=== PATIENT | male | born 1985 | race African-American/Black ===

== ENCOUNTER 2017-04-28 12:06 | Inpatient (IN) | payer MEDICAID ==
[~2017-04-28] VITALS: Ht 198.1 cm; Wt 97.5 kg
[2017-04-28 12:30] VITALS: BP 149/71
[2017-04-28] MEDS ORDERED: HYDROmorphone 1mg/ml Carpuject IVP ONE ×2 (12:30→16:15)
[2017-04-28 13:09] LABS: APPEARANCE,URINE CLEAR; KETONES,URINE NEGATIVE (NEGATIVE); LEUKOCYTE ESTERASE ,URINE NEGATIVE (NEGATIVE); MEAN CORPUSCULAR HEMOGLOBIN 30.2 PG (27.0-31.0); MEAN CORPUSCULAR HGB CONC 31.8 G/DL (32.0-36.0); MEAN CORPUSCULAR VOLUME 95 FL (80-99); MEAN PLATELET VOLUME 5.3 FL (6.5-10.1); MONOCYTES % (AUTO) 7.1 % (1.0-10.0); NEUTROPHILS % (AUTO) 61.9 % (45.0-75.0); NITRITE,URINE NEGATIVE (NEGATIVE); PH,URINE 6.5 (4.5-8.0); PLATELET COUNT 223 K/UL (150-450); PROTEIN,URINE NEGATIVE (NEGATIVE); RED BLOOD COUNT 4.77 M/UL (4.70-6.10); RED CELL DISTRIBUTION WIDTH 13.9 % (11.6-14.8); UROBILINOGEN,URINE NORMAL MG/DL (0.0-1.0); WHITE BLOOD COUNT 4.8 K/UL (4.8-10.8)
[2017-04-28 13:30] LABS: BACTERIA,URINE OCCASIONAL /HPF; SQUAMOUS EPITHELIAL CELL,UR OCCASIONAL /LPF (NONE/OCC); WBC,URINE 0-2 /HPF (0 - 0)
[2017-04-28 13:31] LABS: ALANINE AMINOTRANSFERASE 29 U/L (12-78); ALBUMIN/GLOBULIN RATIO 1.4 (1.0-2.7); ANION GAP 13 mmol/L (5-15); ASPARTATE AMINO TRANSFERASE 14 U/L (15-37); CALCIUM 9.9 MG/DL (8.5-10.1); CARBON DIOXIDE 26 MMOL/L (21-32); CHLORIDE 103 MMOL/L (98-107); CREATININE 0.6 MG/DL (0.55-1.30); GLOMERULAR FILTRATION RATE > 60 mL/min (>60); POTASSIUM 3.6 MMOL/L (3.5-5.1); SODIUM 142 MMOL/L (136-145); TOTAL PROTEIN 8.1 G/DL (6.4-8.2)
[2017-04-28 13:34] LABS: CKMB < 0.5 NG/ML (0.0-3.6); LIPASE 623 U/L (73-393)
[2017-04-28] MEDS ORDERED: DiphenhydrAMINE 50mg/ml Inj IVP ONE (13:45)
[2017-04-28] MEDS ORDERED: Solu-MEDROL 125mg Inj IVP ONE (13:45)
[2017-04-28] MEDS ORDERED: D5 1/2NS 1000ml IV ONE (14:41)
[2017-04-28 14:44] VITALS: BP 131/71
--- NOTE | 2017-04-28 16:08 | Emergency Room Report ---
History of Present Illness General Chief Complaint: Chest Pain Source: Patient, Medical Record Present Illness HPI 31-year-old male presents ED complaining of chest pain times one day. Also states he vomited blood. States has history of heart attack with multiple stents. Has pacemaker. Has history of A. fib and is on eliquis. Chest pain is 10 out of 10, midsternal, nonradiating. Patient states he is visiting from [place]. Denies smoking or drug use. No other aggravating relieving factors. Denies any other associated symptoms Allergies: Coded Allergies: AVOCADO (Verified Allergy, Unknown, 04/28/17) BANANA (Verified Allergy, Unknown, 04/28/17) KETOROLAC (Verified Allergy, Unknown, 04/28/17) Kiwi (Verified Allergy, Unknown, 04/28/17) LATEX, NATURAL RUBBER (Verified Allergy, Unknown, 04/28/17) MORPHINE (Verified Allergy, Unknown, 04/28/17) ONION (Verified Allergy, Unknown, 04/28/17) PROMETHAZINE (Verified Allergy, Unknown, 04/28/17) PROPOFOL (Verified Allergy, Unknown, 04/28/17) Uncoded Allergies: IODINATED CONTRAST (Allergy, Unknown, 04/28/17) Patient History Past Medical History: CHF, AFib, CVA/TIA Past Surgical History: none, pacemaker Pertinent Family History: none Social History: Denies: smoking, alcohol use, drug use Immunizations: UTD Reviewed Nursing Documentation: PMH: Agreed, PSxH: Agreed Nursing Documentation-PMH Hx Cardiac Problems: Yes - s/p patent foramen ovale closure, TIA, CHF, Supraventricular Tachycardia Hx Hypertension: Yes - Pulmonary Hypertension Hx Pacemaker: Yes - Biotronik pacemaker Hx Gastrointestinal Problems: Yes - Iron deficiency anemia Hx Neurological Problems: No - marfan syndrome Hx Cerebrovascular Accident: Yes - 2007 Review of Systems All Other Systems: negative except mentioned in HPI Physical Exam Vital Signs Date Time Temp Pulse Resp B/P (MAP) Pulse Ox O2 Delivery O2 Flow Rate FiO2 04/28/17 12:11 98.4 80 18 149/71 100 Room Air Sp02 EP Interpretation: reviewed, normal General Appearance: no apparent distress, alert, GCS 15, non-toxic Head: normocephalic, atraumatic Eyes: bilateral eye normal inspection, bilateral eye PERRL ENT: hearing grossly normal, normal pharynx, no angioedema, normal voice Neck: full range of motion, supple/symm/no masses Respiratory: chest non-tender, lungs clear, normal breath sounds, speaking full sentences Cardiovascular #1: regular rate, rhythm, no edema Cardiovascular #2: 2+ carotid (R), 2+ carotid (L), 2+ radial (R), 2+ radial (L) , 2+ dorsalis pedis (R), 2+ dorsalis pedis (L) Gastrointestinal: normal bowel sounds, non tender, soft, non-distended, no guarding, no rebound Rectal: deferred Genitourinary: normal inspection, no CVA tenderness Musculoskeletal: back normal, gait/station normal, normal range of motion, non- tender Neurologic: alert, oriented x3, responsive, motor strength/tone normal, sensory intact, speech normal Psychiatric: judgement/insight normal, memory normal, mood/affect normal, no suicidal/homicidal ideation Reflexes: 3+ bicep (R), 3+ bicep (L), 3+ tricep (R), 3+ tricep (L), 3+ knee (R) , 3+ knee (L) Skin: normal color, no rash, warm/dry, well hydrated Lymphatic: no adenopathy Medical Decision Making Diagnostic Impression: Primary Impression: ACS (acute coronary syndrome) Additional Impression: UGIB (upper gastrointestinal bleed) ER Course Hospital Course 31-year-old male presents to ED with chest pain. History of [place] and pacemaker. History of afib. vomiting blood. Differential diagnoses include: W[place]/unstable angina, contusion, muscle strain, PTX, rib fracture Clinical course patient placed on stretcher. on environmental monitoring specialist. After initial history and physical I ordered labs, EKG, chest x-ray, pain meds, pepcid labs reviewed- no leukocytosis, hb/hct stable, electrolytes ok, trop negative EKG - NSR, twave inversions in lateral leads interpreted by me Chest x-ray- pacemaker noted Patient is difficult IV access. I placed a peripheral EJ line Potential concern for PE however patient does have stable vitals. I ordered CTA chest but patient does have contrast allergy. Hospital protocol requires 24 hours of treatment with steroids. Ordered Solu-Medrol and Benadryl here. Aspirin given Case discussed with Dr. Francois and he agreed to accept the patient to his service for further care and support I. I feel this is a highly complex case requiring extensive working including EKG/Rhythm strip, Xray/CT/US, Blood/urine lab work, repeat exams while in ED, and administration of strong opiates/narcotics for pain control, admission to hospital or close patient follow up. Diagnosis - ACS, UGIB admitted to telemetry in serious condition Labs Test 04/28/17 12:55 White Blood Count 4.8 K/UL (4.8-10.8) Red Blood Count 4.77 M/UL (4.70-6.10) Hemoglobin 14.4 G/DL (14.2-18.0) Hematocrit 45.3 % (42.0-52.0) Mean Corpuscular Volume 95 FL (80-99) Mean Corpuscular Hemoglobin 30.2 PG (27.0-31.0) Mean Corpuscular Hemoglobin Concent 31.8 G/DL (32.0-36.0) Red Cell Distribution Width 13.9 % (11.6-14.8) Platelet Count 223 K/UL (150-450) Mean Platelet Volume 5.3 FL (6.5-10.1) Neutrophils (%) (Auto) 61.9 % (45.0-75.0) Lymphocytes (%) (Auto) 29.0 % (20.0-45.0) Monocytes (%) (Auto) 7.1 % (1.0-10.0) Eosinophils (%) (Auto) 1.0 % (0.0-3.0) Basophils (%) (Auto) 1.0 % (0.0-2.0) Prothrombin Time 10.0 SEC (9.30-11.50) Prothromb Time International Ratio 1.0 (0.9-1.1) Activated Partial Thromboplast Time 19 SEC (23-33) Urine Color Pale yellow Urine Appearance Clear Urine pH 6.5 (4.5-8.0) Urine Specific [place] 1.015 (1.005-1.035) Urine Protein Negative (NEGATIVE) Urine Glucose (UA) Negative (NEGATIVE) Urine Ketones Negative (NEGATIVE) Urine Occult Blood 2+ (NEGATIVE) Urine Nitrite Negative (NEGATIVE) Urine Bilirubin Negative (NEGATIVE) Urine Urobilinogen Normal MG/DL (0.0-1.0) Urine Leukocyte Esterase Negative (NEGATIVE) Urine RBC 2-4 /HPF (0 - 0) Urine WBC 0-2 /HPF (0 - 0) Urine Squamous Epithelial Cells Occasional /LPF Urine Bacteria Occasional /HPF (NONE) Sodium Level 142 MMOL/L (136-145) Potassium Level 3.6 MMOL/L (3.5-5.1) Chloride Level 103 MMOL/L (98-107) Carbon Dioxide Level 26 MMOL/L (21-32) Anion Gap 13 mmol/L (5-15) Blood Urea Nitrogen 8 mg/dL (7-18) Creatinine 0.6 MG/DL (0.55-1.30) Estimat Glomerular Filtration Rate > 60 mL/min (>60) Glucose Level 85 MG/DL (74-106) Calcium Level 9.9 MG/DL (8.5-10.1) Total Bilirubin 0.5 MG/DL (0.2-1.0) Aspartate Amino Transf (AST/SGOT) 14 U/L (15-37) Alanine Aminotransferase (ALT/SGPT) 29 U/L (12-78) Alkaline Phosphatase 70 U/L (46-116) Total Creatine Kinase 75 U/L (26-308) Creatine Kinase MB < 0.5 NG/ML (0.0-3.6) Creatine Kinase MB Relative Index 0.6 Troponin I 0.000 ng/mL (0.000-0.056) Total Protein 8.1 G/DL (6.4-8.2) Albumin 4.7 G/DL (3.4-5.0) Globulin 3.4 g/dL Albumin/Globulin Ratio 1.4 (1.0-2.7) Lipase 623 U/L (73-393) EKG Diagnostic Results Rate: normal Rhythm: NSR ST Segments: other - twave inversions in lateral leads ASA given to the pt in ED: Yes Rhythm Strip Diag. Results EP Interpretation: yes Rhythm: NSR, no PVC's, no ectopy Chest X-Ray Diagnostic Results Chest X-Ray Diagnostic Results : Chest X-Ray Ordered: Yes # of Views/Limited/Complete: 1 View Indication: Chest Pain EP Interpretation: Yes Interpretation: no consolidation, no effusion, no pneumothorax, no acute cardiopulmonary disease, other - pacemaker Impression: No acute disease Electronically Signed by: Electronically signed by Arley Fernandez MD Last Vital Signs Date Time Temp Pulse Resp B/P (MAP) Pulse Ox O2 Delivery O2 Flow Rate FiO2 04/28/17 14:44 98.4 72 13 131/71 100 Room Air Status: improved Disposition: ADMITTED INPATIENT Condition: Serious Referrals: NON PHYSICIAN (PCP) ARLEY FERNANDEZ M.D. Apr 28, 2017 16:08
[2017-04-28 16:31] VITALS: BP 132/69
--- NOTE | 2017-04-28 16:40 | Diagnostic Imaging Report ---
Indication: Dyspnea Comparison: None A single view chest radiograph was obtained. Findings: Pacemaker noted. No definite infiltrate or pulmonary vascular congestion identified. The heart is enlarged. The aorta is mildly enlarged consistent with atherosclerotic vascular disease. The bones are osteopenic. Impression: No acute disease
[2017-04-28] MEDS ORDERED: Nitroglycerin Subl 0.4mg tab SL PRN (16:45)
[2017-04-28] MEDS ORDERED: Mylanta II UD 30ml ORAL PRN (16:45)
[2017-04-28] MEDS ORDERED: Miralax 17gm pkt ORAL PRN (16:45)
[2017-04-28] MEDS ORDERED: D5 1/2NS 1,000 ML IV SCH (17:38)
[2017-04-28] MEDS ORDERED: ELIQUIS5 MG PO (18:51)
[2017-04-28] MEDS ORDERED: LIPITOR10 MG ORAL (18:51)
[2017-04-28] MEDS ORDERED: ZOLPIDEM TARTRA10 MG ORAL (18:51)
[2017-04-28] MEDS ORDERED: SPIRONOLACTONE1 EACH ORAL (18:51)
[2017-04-28] MEDS ORDERED: GABAPENTIN300 MG ORAL (18:51)
[2017-04-28] MEDS ORDERED: FERROUS SULFAT325 MG ORAL (18:51)
[2017-04-28] MEDS ORDERED: TRAMADOL HCL50 MG ORAL (18:51)
[2017-04-28] MEDS ORDERED: PANTOPRAZOLE SO40 MG ORAL (18:51)
[2017-04-28] MEDS ORDERED: ISOSORBIDE MONO60 M1 PO (18:51)
[2017-04-28] MEDS ORDERED: CARAFATE1 G1 ORAL (18:51)
[2017-04-28] MEDS ORDERED: DIGOXIN125 MCG ORAL (18:51)
[2017-04-28] MEDS ORDERED: POTASSIUM CHLO20 ME1 ORAL (18:51)
[2017-04-28] MEDS ORDERED: SERTRALINE HCL50 MG ORAL (18:51)
[2017-04-28] MEDS ORDERED: DILAUDID2 MG ORAL (18:51)
[2017-04-28] MEDS ORDERED: CARVEDILOL6.25 MG ORAL (18:51)
[2017-04-28] MEDS ORDERED: SOTALOL PO (18:51)
[2017-04-28] MEDS ORDERED: Pantoprazole Inj IV SCH (19:00)
--- NOTE | 2017-04-28 20:10 | History and Physical ---
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 Pt states around 8AM he had episode of emesis w/ blood breaks and then 9AM he had coffee- ground emesis. He also c/o chest pain and abd pain which started today w/ intermittent episodes. Chest pain is 10/10 substernal sharp/tearing sensation radiation to upper back. C/o nausea, some SOB, but no f/c, d/c, dysuria. Denies melena, BRBPR, hematochezia. Pt lives in [place] and normally goes to [place] for medical care, but is visit [place] at this time. In ED, hgb 14. Trop neg. CT angio chest ordered but pt w/ iodine allergy so received solumedrol and benadryl w/ plan for CT in 24h. Allergies: Coded Allergies: AVOCADO (Verified Allergy, Unknown, 04/28/17) BANANA (Verified Allergy, Unknown, 04/28/17) KETOROLAC (Verified Allergy, Unknown, 04/28/17) Kiwi (Verified Allergy, Unknown, 04/28/17) LATEX, NATURAL RUBBER (Verified Allergy, Unknown, 04/28/17) MORPHINE (Verified Allergy, Unknown, 04/28/17) ONION (Verified Allergy, Unknown, 04/28/17) PROMETHAZINE (Verified Allergy, Unknown, 04/28/17) PROPOFOL (Verified Allergy, Unknown, 04/28/17) Uncoded Allergies: IODINATED CONTRAST (Allergy, Unknown, 04/28/17) Medication History Scheduled Apixaban (Eliquis), 5 MG PO BID, (Reported) Atorvastatin Calcium* (Lipitor*), 10 MG ORAL DAILY, (Reported) Carvedilol* (Carvedilol*), 6.25 MG ORAL BID, (Reported) Digoxin* (Digoxin*), 125 MCG ORAL DAILY, (Reported) Ferrous Sulfate* (Ferrous Sulfate*), 325 MG ORAL THREE TIMES A DAY, (Reported) Gabapentin* (Gabapentin*), 300 MG ORAL THREE TIMES A DAY, (Reported) Hydromorphone HCl (Dilaudid), 2 MG ORAL Q4H, (Reported) Isosorbide Mononitrate (Isosorbide Mononitrate Er), 60 MG PO DAILY, (Reported) Pantoprazole* (Pantoprazole*), 40 MG ORAL DAILY, (Reported) Potassium Chloride* (K-Dur*), 40 MEQ ORAL TWICE A DAY, (Reported) Sertraline Hcl* (Zoloft*), 50 MG ORAL DAILY, (Reported) Sotalol HCl (Sotalol), 80 MG PO BID, (Reported) Spironolact/Hydrochlorothiazid (Spironolactone-Hctz 25-25 Tab), 1 TAB ORAL DAILY , (Reported) Sucralfate* (Carafate*), 1 GM ORAL BEDTIME, (Reported) Scheduled PRN Tramadol Hcl* (Ultram*), 50 MG ORAL Q6H PRN for For Pain, (Reported) Zolpidem Tartrate* (Zolpidem Tartrate*), 10 MG ORAL BEDTIME PRN for Insomnia, ( Reported) Patient History Healthcare decision maker Resuscitation status Advanced Directive on File Yes Past Medical/Surgical History Past Medical/Surgical History: (1) H/o MD in 2011 (2) VF/VT s/p ICD (3) ASD s/p closure (4) Spontaneous pneumothorax (5) Paroxysmal A-fib (6) H/o CVA w/ residual L sided weakness (7) 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 (8) Marfan syndrome Family History Family History: Marfan syndrome Social History Social History: (1) No significant social history Review of Systems Constitutional: Reports: weakness Eye: Reports: no symptoms ENT: Reports: no symptoms Respiratory: Reports: shortness of breath Cardiovascular: Reports: chest pain Gastrointestinal: Reports: abdominal pain, nausea, vomiting, hematemesis Genitourinary: Reports: no symptoms Musculoskeletal: Reports: no symptoms Skin: Reports: no symptoms Psychiatric: Reports: no symptoms Neurological: Reports: no symptoms Endocrine: Reports: no symptoms Hematologic/Lymphatic: Reports: no symptoms All Other Systems: negative except mentioned in HPI Physical Exam Physical Exam Narrative General: alert, cooperative, no distress, appears stated age Head: normocephalic, without obvious abnormality, atraumatic Eyes: conjunctivae/corneas clear. PERRL, EOM's intact Throat: lips, mucosa, and tongue normal. MMM Neck: supple, symmetrical, trachea midline, and no JVD Lungs: clear to auscultation bilaterally Heart: regular rate and rhythm, S1, S2 normal, no murmur, click, rub or gallop Abdomen: soft, non-tender, non-distended, bowel sounds normal; no masses or organomegaly Extremities: extremities normal, atraumatic, no cyanosis or edema Pulses: 2+ and symmetric Skin: skin color, texture, turgor normal; no rashes or lesions Neurologic: grossly normal, no focal deficits Last 24 Hour Vital Signs Date Time Temp Pulse Resp B/P (MAP) Pulse Ox O2 Delivery O2 Flow Rate FiO2 04/28/17 19:00 98.4 71 17 117/64 100 Room Air 04/28/17 16:31 98.4 75 16 132/69 100 Room Air 04/28/17 14:44 98.4 72 13 131/71 100 Room Air 04/28/17 12:30 67 13 Room Air 04/28/17 12:30 98.4 67 13 149/71 100 Room Air 04/28/17 12:11 98.4 80 18 149/71 100 Room Air Intake and Output 04/28/17 04/29/17 19:00 07:00 Intake Total 1000 ml Output Total 600 ml Balance 400 ml Intake IV Total 1000 ml Output Urine Total 600 ml # Voids 2 Laboratory Tests Test 04/28/17 12:55 White Blood Count 4.8 K/UL (4.8-10.8) Red Blood Count 4.77 M/UL (4.70-6.10) Hemoglobin 14.4 G/DL (14.2-18.0) Hematocrit 45.3 % (42.0-52.0) Mean Corpuscular Volume 95 FL (80-99) Mean Corpuscular Hemoglobin 30.2 PG (27.0-31.0) Mean Corpuscular Hemoglobin Concent 31.8 G/DL (32.0-36.0) L Red Cell Distribution Width 13.9 % (11.6-14.8) Platelet Count 223 K/UL (150-450) Mean Platelet Volume 5.3 FL (6.5-10.1) L Neutrophils (%) (Auto) 61.9 % (45.0-75.0) Lymphocytes (%) (Auto) 29.0 % (20.0-45.0) Monocytes (%) (Auto) 7.1 % (1.0-10.0) Eosinophils (%) (Auto) 1.0 % (0.0-3.0) Basophils (%) (Auto) 1.0 % (0.0-2.0) Prothrombin Time 10.0 SEC (9.30-11.50) Prothromb Time International Ratio 1.0 (0.9-1.1) Activated Partial Thromboplast Time 19 SEC (23-33) L Urine Color Pale yellow Urine Appearance Clear Urine pH 6.5 (4.5-8.0) Urine Specific [place] 1.015 (1.005-1.035) Urine Protein Negative (NEGATIVE) Urine Glucose (UA) Negative (NEGATIVE) Urine Ketones Negative (NEGATIVE) Urine Occult Blood 2+ (NEGATIVE) H Urine Nitrite Negative (NEGATIVE) Urine Bilirubin Negative (NEGATIVE) Urine Urobilinogen Normal MG/DL (0.0-1.0) Urine Leukocyte Esterase Negative (NEGATIVE) Urine RBC 2-4 /HPF (0 - 0) H Urine WBC 0-2 /HPF (0 - 0) Urine Squamous Epithelial Cells Occasional /LPF Urine Bacteria Occasional /HPF (NONE) Sodium Level 142 MMOL/L (136-145) Potassium Level 3.6 MMOL/L (3.5-5.1) Chloride Level 103 MMOL/L (98-107) Carbon Dioxide Level 26 MMOL/L (21-32) Anion Gap 13 mmol/L (5-15) Blood Urea Nitrogen 8 mg/dL (7-18) Creatinine 0.6 MG/DL (0.55-1.30) Estimat Glomerular Filtration Rate > 60 mL/min (>60) Glucose Level 85 MG/DL (74-106) Calcium Level 9.9 MG/DL (8.5-10.1) Total Bilirubin 0.5 MG/DL (0.2-1.0) Aspartate Amino Transf (AST/SGOT) 14 U/L (15-37) L Alanine Aminotransferase (ALT/SGPT) 29 U/L (12-78) Alkaline Phosphatase 70 U/L (46-116) Total Creatine Kinase 75 U/L (26-308) Creatine Kinase MB < 0.5 NG/ML (0.0-3.6) Creatine Kinase MB Relative Index 0.6 Troponin I 0.000 ng/mL (0.000-0.056) Total Protein 8.1 G/DL (6.4-8.2) Albumin 4.7 G/DL (3.4-5.0) Globulin 3.4 g/dL Albumin/Globulin Ratio 1.4 (1.0-2.7) Lipase 623 U/L (73-393) H Height (Feet): 6 Height (Inches): 3.00 Weight (Pounds): 215 Medications Current Medications Medications (Trade) Dose Ordered Sig/Nichelle Route PRN Reason Start Time Stop Time Status Last Admin Dose Admin Acetaminophen (Tylenol) 650 mg Q4H PRN ORAL Mild Pain (Pain Scale 1-3) 04/28/17 16:45 05/28/17 16:44 Al Hydroxide/Mg Hydroxide (Mylanta II) 30 ml Q6H PRN ORAL dyspepsia 04/28/17 16:45 05/28/17 16:44 Dextrose (Dextrose 50%) STAT PRN IV Hypoglycemia 04/28/17 16:45 05/28/17 16:44 Dextrose/Sodium Chloride 1,000 ml @ 100 mls/hr Q10H IV 04/28/17 17:00 05/28/17 16:59 Diphenhydramine HCl (Benadryl) 25 mg Q6H PRN ORAL Itching/Pruritis 04/28/17 16:45 05/28/17 16:44 Docusate Sodium (Colace) 100 mg EVERY 12 HOURS ORAL 04/28/17 21:00 05/28/17 20:59 Nitroglycerin (Ntg) 0.4 mg Q5M PRN SL Prn Chest Pain 04/28/17 16:45 05/28/17 16:44 Ondansetron HCl (Zofran) 4 mg Q6H PRN IVP Nausea & Vomiting 04/28/17 16:45 05/28/17 16:44 Pantoprazole (Protonix) 40 mg DAILY IV 04/28/17 19:00 05/28/17 18:59 Polyethylene Glycol (Miralax) 17 gm DAILYPRN PRN ORAL Constipation 04/28/17 16:45 05/28/17 16:44 Assessment/Plan Problem List: (1) Acute upper GI bleed ICD Codes: K92.2 - Gastrointestinal hemorrhage, unspecified SNOMED: 87010125 (2) Atypical chest pain ICD Codes: R07.89 - Other chest pain SNOMED: 083430567 (3) Elevated lipase ICD Codes: R74.8 - Abnormal levels of other serum enzymes SNOMED: 234728729 (4) Marfan syndrome ICD Codes: Q87.40 - Marfan's syndrome, unspecified SNOMED: 90559883 (5) H/o MD in 2011 (6) H/o CVA w/ residual L sided weakness (7) VF/VT s/p ICD (8) ASD s/p closure (9) Spontaneous pneumothorax ICD Codes: J93.83 - Other pneumothorax SNOMED: 59479035 (10) 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 Apr 28, 2017 20:10
[2017-04-28 21:12] VITALS: BP 140/71
[2017-04-28] MEDS ORDERED: traMADol 50mg tab ORAL PRN (21:15)
[2017-04-28] MEDS ORDERED: Zolpidem 5mg tab ORAL PRN (21:30)
[2017-04-28] MEDS: HYDROmorphone 1mg/ml Carpuject IVP PRN (21:57)
[2017-04-28] MEDS: Carvedilol 6.25mg Tab ORAL SCH (22:21)
[2017-04-28] MEDS: Docusate 100mg cap ORAL SCH (22:22)
[2017-04-28] MEDS: Sucralfate 1gm tab ORAL SCH (22:22)
[2017-04-28] MEDS: D5 1/2NS 1,000 ML IV SCH (22:23)
[2017-04-28 23:58] LABS: MEAN CORPUSCULAR HEMOGLOBIN 30.5 PG (27.0-31.0); MEAN CORPUSCULAR HGB CONC 33.2 G/DL (32.0-36.0); MEAN CORPUSCULAR VOLUME 92 FL (80-99); MEAN PLATELET VOLUME 5.5 FL (6.5-10.1); PLATELET COUNT 192 K/UL (150-450); RED BLOOD COUNT 4.34 M/UL (4.70-6.10); RED CELL DISTRIBUTION WIDTH 13.8 % (11.6-14.8); WHITE BLOOD COUNT 4.5 K/UL (4.8-10.8)
[2017-04-29 00:28] VITALS: BP 166/77
[2017-04-29] MEDS: HYDROmorphone 1mg/ml Carpuject IVP PRN ×6 (02:11→22:12)
[2017-04-29] MEDS ORDERED: DiphenhydrAMINE 50mg/ml Inj IVP ONE ×2 (03:15→09:30)
[2017-04-29] MEDS: D5 1/2NS 1,000 ML IV SCH ×2 (04:08→13:00)
[2017-04-29 04:38] VITALS: BP 129/82
[2017-04-29 08:36] LABS: BASOPHILS % (AUTO) 0.3 % (0.0-2.0); LYMPHOCYTES % (AUTO) 12.4 % (20.0-45.0); MEAN CORPUSCULAR HEMOGLOBIN 29.5 PG (27.0-31.0); MEAN CORPUSCULAR HGB CONC 30.4 G/DL (32.0-36.0); MEAN CORPUSCULAR VOLUME 97 FL (80-99); MEAN PLATELET VOLUME 5.2 FL (6.5-10.1); NEUTROPHILS % (AUTO) 81.3 % (45.0-75.0); PLATELET COUNT 219 K/UL (150-450); RED BLOOD COUNT 4.06 M/UL (4.70-6.10); RED CELL DISTRIBUTION WIDTH 13.5 % (11.6-14.8); WHITE BLOOD COUNT 6.7 K/UL (4.8-10.8)
[2017-04-29 08:54] LABS: ANION GAP 5 mmol/L (5-15); CALCIUM 8.9 MG/DL (8.5-10.1); CARBON DIOXIDE 29 MMOL/L (21-32); CHLORIDE 106 MMOL/L (98-107); CHOLESTEROL 160 MG/DL (< 200); CHOLESTEROL/HDL RATIO 2.1 (3.3-4.4); CREATININE 0.7 MG/DL (0.55-1.30); GLOMERULAR FILTRATION RATE > 60 mL/min (>60); MAGNESIUM 1.7 MG/DL (1.8-2.4); POTASSIUM 3.8 MMOL/L (3.5-5.1); SODIUM 140 MMOL/L (136-145)
[2017-04-29 08:56] VITALS: BP 118/68
[2017-04-29] MEDS ORDERED: Solu-MEDROL 125mg Inj IVP ONE (09:30)
[2017-04-29] MEDS: Sertraline 50mg tab ORAL SCH (09:39)
[2017-04-29] MEDS: Docusate 100mg cap ORAL SCH ×2 (09:42→20:46)
[2017-04-29] MEDS: Carvedilol 6.25mg Tab ORAL SCH ×2 (09:43→18:00)
[2017-04-29] MEDS: Digoxin 0.125mg tab ORAL SCH (09:45)
[2017-04-29 10:02] LABS: HEMOGLOBIN A1C 5.1 % (4.3-6.0)
--- NOTE | 2017-04-29 11:39 | GI Initial Consult Note ---
History of Present Illness General Date patient seen: Apr 29, 2017 Time patient seen: 11:30 Reason for Hospitalization: Chest Pain Referring physician: REJI TRIPLETT Reason for Consultation: UGIB Present Illness HPI 31-year-old male presents ED complaining of chest pain times one day. Also states he vomited blood. States has history of heart attack with multiple stents. Has pacemaker. Has history of A. fib and is on eliquis. Chest pain is 10 out of 10, midsternal, nonradiating. Patient states he is visiting from [place]. Denies smoking or drug use. No other aggravating relieving factors. Denies any other associated symptoms. GI consulted for UGIB. HPI as noted above. Pt seen on floor, awake A&Ox4 NAD with no active s/sx of N/V/D. Denies any pain at this time. Denies IVDA/etoh use. The patient presents today with mild anemia and elevated lipase. 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 Currently on PPI + Carafate. Patient also has a history of varices, which was not found on his recent EGD. Patient stated last PO eliquis was taken 2 days ago. Home Meds Reported Medications Zolpidem Tartrate* (ZOLPIDEM TARTRATE*) 10 Mg Tablet, 10 MG ORAL BEDTIME Y for Insomnia, TAB 0 Refills 04/28/17 Tramadol Hcl* (ULTRAM*) 50 Mg Tablet, 50 MG ORAL Q6H Y for For Pain, #30 TAB 0 Refills 04/28/17 Sucralfate* (CARAFATE*) 1 Gm Tablet, 1 GM ORAL BEDTIME, TAB 04/28/17 Spironolact/Hydrochlorothiazid (SPIRONOLACTONE-HCTZ 25-25 TAB) 1 Each Tablet, 1 TAB ORAL DAILY, TAB 04/28/17 Sotalol HCl (Sotalol) 80 Mg Tablet, 80 MG PO BID, TAB 04/28/17 Sertraline Hcl* (ZOLOFT*) 50 Mg Tablet, 50 MG ORAL DAILY, TAB 04/28/17 Potassium Chloride* (K-DUR*) 20 Meq Tab.er.prt, 40 MEQ ORAL TWICE A DAY, #14 TAB 0 Refills 04/28/17 Pantoprazole* (PANTOPRAZOLE*) 40 Mg Tablet.dr, 40 MG ORAL DAILY, TAB 04/28/17 Isosorbide Mononitrate (ISOSORBIDE MONONITRATE ER) 60 Mg Tab.er.24h, 60 MG PO DAILY, TAB 04/28/17 Hydromorphone HCl (Dilaudid) 2 Mg Tablet, 2 MG ORAL Q4H, #20 TAB 0 Refills 04/28/17 Gabapentin* (GABAPENTIN*) 300 Mg Capsule, 300 MG ORAL THREE TIMES A DAY, CAP 0 Refills 04/28/17 Ferrous Sulfate* (FERROUS SULFATE*) 325 Mg Tablet, 325 MG ORAL THREE TIMES A DAY , #90 TAB 0 Refills 04/28/17 Digoxin* (DIGOXIN*) 125 Mcg Tablet, 125 MCG ORAL DAILY, TAB 04/28/17 Carvedilol* (CARVEDILOL*) 6.25 Mg Tablet, 6.25 MG ORAL BID, TAB 04/28/17 Atorvastatin Calcium* (LIPITOR*) 10 Mg Tablet, 10 MG ORAL DAILY, #30 TAB 0 Refills 04/28/17 Apixaban (ELIQUIS) 5 Mg Tablet, 5 MG PO BID, TAB 04/28/17 Med list reviewed/reconciled: Yes Allergies: Coded Allergies: AVOCADO (Verified Allergy, Unknown, 04/28/17) BANANA (Verified Allergy, Unknown, 04/28/17) KETOROLAC (Verified Allergy, Unknown, 04/28/17) Kiwi (Verified Allergy, Unknown, 04/28/17) LATEX, NATURAL RUBBER (Verified Allergy, Unknown, 04/28/17) MORPHINE (Verified Allergy, Unknown, 04/28/17) ONION (Verified Allergy, Unknown, 04/28/17) PROMETHAZINE (Verified Allergy, Unknown, 04/28/17) PROPOFOL (Verified Allergy, Unknown, 04/28/17) Uncoded Allergies: IODINATED CONTRAST (Allergy, Unknown, 04/28/17) Patient History History Provided By: Patient, Medical Record PMH Narrative Past Medical History: CHF, AFib, CVA/TIA Past Surgical History: none, pacemaker Pertinent Family History: none Social History: Denies: smoking, alcohol use, drug use Immunizations: UTD Reviewed Nursing Documentation: PMH: Agreed, PSxH: Agreed Nursing Documentation-PMH Hx Cardiac Problems: Yes - s/p patent foramen ovale closure, TIA, CHF, Supraventricular Tachycardia Hx Hypertension: Yes - Pulmonary Hypertension Hx Pacemaker: Yes - Biotronik pacemaker Hx Gastrointestinal Problems: Yes - Iron deficiency anemia Hx Neurological Problems: No - marfan syndrome Hx Cerebrovascular Accident: Yes - 2007 Review of Systems All Other Systems: negative except mentioned in HPI Physical Exam Vital Signs Date Time Temp Pulse Resp B/P (MAP) Pulse Ox O2 Delivery O2 Flow Rate FiO2 04/28/17 12:11 98.4 80 18 149/71 100 Room Air Sp02 EP Interpretation: reviewed, normal Labs Laboratory Tests Test 04/28/17 12:55 04/28/17 23:40 04/29/17 07:45 White Blood Count 4.8 K/UL (4.8-10.8) 4.5 K/UL (4.8-10.8) L 6.7 K/UL (4.8-10.8) Red Blood Count 4.77 M/UL (4.70-6.10) 4.34 M/UL (4.70-6.10) L 4.06 M/UL (4.70-6.10) L Hemoglobin 14.4 G/DL (14.2-18.0) 13.2 G/DL (14.2-18.0) L 12.0 G/DL (14.2-18.0) L Hematocrit 45.3 % (42.0-52.0) 39.9 % (42.0-52.0) L 39.3 % (42.0-52.0) L Mean Corpuscular Volume 95 FL (80-99) 92 FL (80-99) 97 FL (80-99) Mean Corpuscular Hemoglobin 30.2 PG (27.0-31.0) 30.5 PG (27.0-31.0) 29.5 PG (27.0-31.0) Mean Corpuscular Hemoglobin Concent 31.8 G/DL (32.0-36.0) L 33.2 G/DL (32.0-36.0) 30.4 G/DL (32.0-36.0) L Red Cell Distribution Width 13.9 % (11.6-14.8) 13.8 % (11.6-14.8) 13.5 % (11.6-14.8) Platelet Count 223 K/UL (150-450) 192 K/UL (150-450) 219 K/UL (150-450) Mean Platelet Volume 5.3 FL (6.5-10.1) L 5.5 FL (6.5-10.1) L 5.2 FL (6.5-10.1) L Neutrophils (%) (Auto) 61.9 % (45.0-75.0) % (45.0-75.0) 81.3 % (45.0-75.0) H Lymphocytes (%) (Auto) 29.0 % (20.0-45.0) % (20.0-45.0) 12.4 % (20.0-45.0) L Monocytes (%) (Auto) 7.1 % (1.0-10.0) % (1.0-10.0) 6.0 % (1.0-10.0) Eosinophils (%) (Auto) 1.0 % (0.0-3.0) % (0.0-3.0) 0.0 % (0.0-3.0) Basophils (%) (Auto) 1.0 % (0.0-2.0) % (0.0-2.0) 0.3 % (0.0-2.0) Prothrombin Time 10.0 SEC (9.30-11.50) Prothromb Time International Ratio 1.0 (0.9-1.1) Activated Partial Thromboplast Time 19 SEC (23-33) L Urine Color Pale yellow Urine Appearance Clear Urine pH 6.5 (4.5-8.0) Urine Specific Reading 1.015 (1.005-1.035) Urine Protein Negative (NEGATIVE) Urine Glucose (UA) Negative (NEGATIVE) Urine Ketones Negative (NEGATIVE) Urine Occult Blood 2+ (NEGATIVE) H Urine Nitrite Negative (NEGATIVE) Urine Bilirubin Negative (NEGATIVE) Urine Urobilinogen Normal MG/DL (0.0-1.0) Urine Leukocyte Esterase Negative (NEGATIVE) Urine RBC 2-4 /HPF (0 - 0) H Urine WBC 0-2 /HPF (0 - 0) Urine Squamous Epithelial Cells Occasional /LPF Urine Bacteria Occasional /HPF (NONE) Sodium Level 142 MMOL/L (136-145) 140 MMOL/L (136-145) Potassium Level 3.6 MMOL/L (3.5-5.1) 3.8 MMOL/L (3.5-5.1) Chloride Level 103 MMOL/L (98-107) 106 MMOL/L (98-107) Carbon Dioxide Level 26 MMOL/L (21-32) 29 MMOL/L (21-32) Anion Gap 13 mmol/L (5-15) 5 mmol/L (5-15) Blood Urea Nitrogen 8 mg/dL (7-18) 6 mg/dL (7-18) L Creatinine 0.6 MG/DL (0.55-1.30) 0.7 MG/DL (0.55-1.30) Estimat Glomerular Filtration Rate > 60 mL/min (>60) > 60 mL/min (>60) Glucose Level 85 MG/DL (74-106) 127 MG/DL (74-106) H Calcium Level 9.9 MG/DL (8.5-10.1) 8.9 MG/DL (8.5-10.1) Total Bilirubin 0.5 MG/DL (0.2-1.0) Aspartate Amino Transf (AST/SGOT) 14 U/L (15-37) L Alanine Aminotransferase (ALT/SGPT) 29 U/L (12-78) Alkaline Phosphatase 70 U/L (46-116) Total Creatine Kinase 75 U/L (26-308) Creatine Kinase MB < 0.5 NG/ML (0.0-3.6) Creatine Kinase MB Relative Index 0.6 Troponin I 0.000 ng/mL (0.000-0.056) 0.000 ng/mL (0.000-0.056) 0.000 ng/mL (0.000-0.056) Total Protein 8.1 G/DL (6.4-8.2) Albumin 4.7 G/DL (3.4-5.0) Globulin 3.4 g/dL Albumin/Globulin Ratio 1.4 (1.0-2.7) Lipase 623 U/L (73-393) H 78 U/L (73-393) D-Dimer 0.20 mg/L FEU (0.00-0.49) Hemoglobin A1c 5.1 % (4.3-6.0) Magnesium Level 1.7 MG/DL (1.8-2.4) L Triglycerides Level 36 MG/DL (0-200) Cholesterol Level 160 MG/DL (< 200) LDL Cholesterol 80 mg/dL (<100) HDL Cholesterol 77 MG/DL (40-60) H Cholesterol/HDL Ratio 2.1 (3.3-4.4) L General Appearance: well appearing, no apparent distress, alert Head: normocephalic EENT: PERRL/EOMI, normal ENT inspection Neck: supple Respiratory: normal breath sounds, no respiratory distress Cardiovascular: normal rate Gastrointestinal: normal inspection, non tender, soft, normal bowel sounds, non -distended Rectal: deferred Genitourinary: deferred Musculoskeletal: normal inspection, back normal Neurologic: normal inspection, alert, oriented x3, responsive Psychiatric: normal inspection, judgement/insight normal, memory normal Skin: normal inspection, normal color, no rash, warm/dry, palpation normal, well hydrated Lymphatic: normal inspection, no adenopathy Current Medications Current Medications Medications (Trade) Dose Ordered Sig/Nichelle Route PRN Reason Start Time Stop Time Status Last Admin Dose Admin Acetaminophen (Tylenol) 650 mg Q4H PRN ORAL Mild Pain (Pain Scale 1-3) 04/28/17 16:45 05/28/17 16:44 Al Hydroxide/Mg Hydroxide (Mylanta II) 30 ml Q6H PRN ORAL dyspepsia 04/28/17 16:45 05/28/17 16:44 Atorvastatin Calcium (Lipitor) 10 mg QHS ORAL 04/28/17 22:00 05/28/17 21:59 04/28/17 22:22 Carvedilol (Coreg) 6.25 mg BID ORAL 04/28/17 22:00 05/28/17 21:59 04/29/17 09:43 Dextrose (Dextrose 50%) STAT PRN IV Hypoglycemia 04/28/17 16:45 05/28/17 16:44 Dextrose/Sodium Chloride 1,000 ml @ 100 mls/hr Q10H IV 04/28/17 17:00 05/28/17 16:59 04/29/17 04:08 Digoxin (Lanoxin) 0.125 mg DAILY ORAL 04/29/17 09:00 05/29/17 08:59 04/29/17 09:45 Diphenhydramine HCl (Benadryl) 25 mg Q6H PRN ORAL Itching/Pruritis 04/28/17 16:45 05/28/17 16:44 04/29/17 00:59 Docusate Sodium (Colace) 100 mg EVERY 12 HOURS ORAL 04/28/17 21:00 05/28/17 20:59 04/29/17 09:42 Ferrous Sulfate (Feosol) 325 mg THREE TIMES A DAY ORAL 04/29/17 09:00 05/29/17 08:59 04/29/17 09:40 Gabapentin (Neurontin) 300 mg THREE TIMES A DAY ORAL 04/29/17 09:00 05/29/17 08:59 04/29/17 09:42 Hydromorphone HCl (Dilaudid) 1 mg Q4H PRN IVP For Severe Pain 04/28/17 21:15 05/05/17 21:14 04/29/17 09:47 Nitroglycerin (Ntg) 0.4 mg Q5M PRN SL Prn Chest Pain 04/28/17 16:45 05/28/17 16:44 Ondansetron HCl (Zofran) 4 mg Q6H PRN IVP Nausea & Vomiting 04/28/17 16:45 05/28/17 16:44 04/28/17 22:25 Pantoprazole (Protonix) 40 mg DAILY ORAL 04/29/17 09:00 05/29/17 08:59 04/29/17 09:43 Polyethylene Glycol (Miralax) 17 gm DAILYPRN PRN ORAL Constipation 04/28/17 16:45 05/28/17 16:44 Potassium Chloride (K-Dur) 40 meq TWICE A DAY ORAL 04/29/17 09:00 05/29/17 08:59 04/29/17 09:43 Sertraline HCl (Zoloft) 50 mg DAILY ORAL 04/29/17 09:00 05/29/17 08:59 04/29/17 09:39 Sucralfate (Carafate) 1 gm BEDTIME ORAL 04/28/17 22:30 05/28/17 22:29 04/28/17 22:22 Tramadol HCl (Ultram) 50 mg Q6H PRN ORAL For Moderate Pain 04/28/17 21:15 05/05/17 21:14 Zolpidem Tartrate (Ambien) 5 mg BEDTIME PRN ORAL Insomnia 04/28/17 21:30 05/05/17 21:29 GI: Plan Problems: (1) Elevated lipase (2) UGIB (upper gastrointestinal bleed) Plan 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 - ok for CLD now, NPO @ [facility]. - hold all blood thinners anemia work up OB stool r/o GI bleed monitor H&H, prn transfusions bowel regime ppi fu labs, lipase Discussed with Dr. Sanchez. Thank you for this patient referral, we will follow. Devika Hinojosa N.P. Apr 29, 2017 11:39
[2017-04-29 12:00] VITALS: BP 123/72
--- NOTE | 2017-04-29 12:26 | Diagnostic Imaging Report ---
Indication: Chest pain Technique: Continuous helical transaxial imaging of the chest was obtained from the thoracic inlet to the upper abdomen during rapid intravenous contrast administration. Arterial phase of enhancement obtained. Coronal 2-D reformats were also obtained and maximum intensity projection images in multiple planes. Study obtained in a Siemens sensation [address] Automatic Exposure Control was utilized. Total Dose length Product (DLP): [address] Dose Index Volume (CTDIvol): 0.17, 12.62, 37.87, 22.41 mGy Comparison: None Findings: There is no evidence of pulmonary embolus. The pulmonary artery is relatively well opacified. The thoracic aorta is normal in appearance. There is a pacemaker present. Heart size is normal. Injection was performed through a vein in the left aspect of the neck. The examination shows multiple collateral veins involving the azygos vein which appears to be the main venous inflow to the heart. There is a very small left innominate vein and a tiny left internal jugular vein. The presence of collaterals in the chest wall and spinal region suggest some impediment to central venous inflow. The lungs are essentially clear. The visualized part of the upper abdomen is unremarkable. Impression: No definite evidence of pulmonary embolism. Suspected impediment to central venous inflow on the basis of either occlusion or stenosis. This is described in detail above report. The CT scanner at [facility] is accredited by the [employer] and the scans are performed using dose optimization techniques as appropriate to a performed exam including Automatic Exposure control.
[2017-04-29] MEDS: Sotalol 80mg tab ORAL SCH ×2 (14:22→20:02)
--- NOTE | 2017-04-29 15:19 | Consultation ---
History of Present Illness General Date patient seen: Apr 29, 2017 Chief Complaint: Chest Pain Referring physician: REJI TRIPLETT Reason for Consultation: UGIB Present Illness HPI 31-year-old male with extensive PMHx of CAD, stent, Afib, Upper GI bleeding in the past presented to ED complaining of chest pain and vomiting blood. s. Chest pain is 10 out of 10, midsternal, nonradiating. Denies smoking or drug use. No other aggravating relieving factors. Denies any other associated symptoms. He had a CT angio to chest to rule out PE but showed a very small central vein and enlarged collaterals. Allergies: Coded Allergies: AVOCADO (Verified Allergy, Unknown, 04/28/17) BANANA (Verified Allergy, Unknown, 04/28/17) KETOROLAC (Verified Allergy, Unknown, 04/28/17) Kiwi (Verified Allergy, Unknown, 04/28/17) LATEX, NATURAL RUBBER (Verified Allergy, Unknown, 04/28/17) MORPHINE (Verified Allergy, Unknown, 04/28/17) ONION (Verified Allergy, Unknown, 04/28/17) PROMETHAZINE (Verified Allergy, Unknown, 04/28/17) PROPOFOL (Verified Allergy, Unknown, 04/28/17) Uncoded Allergies: IODINATED CONTRAST (Allergy, Unknown, 04/28/17) Medication History Scheduled Apixaban (Eliquis), 5 MG PO BID, (Reported) Atorvastatin Calcium* (Lipitor*), 10 MG ORAL DAILY, (Reported) Carvedilol* (Carvedilol*), 6.25 MG ORAL BID, (Reported) Digoxin* (Digoxin*), 125 MCG ORAL DAILY, (Reported) Ferrous Sulfate* (Ferrous Sulfate*), 325 MG ORAL THREE TIMES A DAY, (Reported) Gabapentin* (Gabapentin*), 300 MG ORAL THREE TIMES A DAY, (Reported) Hydromorphone HCl (Dilaudid), 2 MG ORAL Q4H, (Reported) Isosorbide Mononitrate (Isosorbide Mononitrate Er), 60 MG PO DAILY, (Reported) Pantoprazole* (Pantoprazole*), 40 MG ORAL DAILY, (Reported) Potassium Chloride* (K-Dur*), 40 MEQ ORAL TWICE A DAY, (Reported) Sertraline Hcl* (Zoloft*), 50 MG ORAL DAILY, (Reported) Sotalol HCl (Sotalol), 80 MG PO BID, (Reported) Spironolact/Hydrochlorothiazid (Spironolactone-Hctz 25-25 Tab), 1 TAB ORAL DAILY , (Reported) Sucralfate* (Carafate*), 1 GM ORAL BEDTIME, (Reported) Scheduled PRN Tramadol Hcl* (Ultram*), 50 MG ORAL Q6H PRN for For Pain, (Reported) Zolpidem Tartrate* (Zolpidem Tartrate*), 10 MG ORAL BEDTIME PRN for Insomnia, ( Reported) Patient History Healthcare decision maker Resuscitation status Full Code Advanced Directive on File Yes Past Medical/Surgical History Past Medical/Surgical History: (1) Stented coronary artery (2) Marfan syndrome (3) Cardiac defibrillator in situ Review of Systems Constitutional: Reports: no symptoms Eye: Reports: no symptoms Gastrointestinal: Reports: vomiting Physical Exam General Appearance: WD/WN Lines, tubes and drains: peripheral HEENT: normocephalic, atraumatic Neck: non-tender, normal alignment Respiratory/Chest: chest wall non-tender, lungs clear Breasts: no masses Cardiovascular/Chest: normal rate Abdomen: normal bowel sounds Last 24 Hour Vital Signs Date Time Temp Pulse Resp B/P (MAP) Pulse Ox O2 Delivery O2 Flow Rate FiO2 04/29/17 14:22 76 117/59 04/29/17 09:45 71 04/29/17 09:43 71 118/68 04/29/17 08:56 97.2 71 19 118/68 Room Air 04/29/17 08:00 64 04/29/17 04:38 96.8 73 18 129/82 97 Room Air 04/29/17 04:00 66 04/29/17 00:28 97.9 76 18 166/77 94 Room Air 04/29/17 00:00 65 04/28/17 22:21 100 140/71 04/28/17 21:12 98.0 100 18 140/71 99 Room Air 04/28/17 19:00 98.4 71 17 117/64 100 Room Air 04/28/17 16:31 98.4 75 16 132/69 100 Room Air Laboratory Tests Test 04/28/17 23:40 04/29/17 07:45 White Blood Count 4.5 K/UL (4.8-10.8) L 6.7 K/UL (4.8-10.8) Red Blood Count 4.34 M/UL (4.70-6.10) L 4.06 M/UL (4.70-6.10) L Hemoglobin 13.2 G/DL (14.2-18.0) L 12.0 G/DL (14.2-18.0) L Hematocrit 39.9 % (42.0-52.0) L 39.3 % (42.0-52.0) L Mean Corpuscular Volume 92 FL (80-99) 97 FL (80-99) Mean Corpuscular Hemoglobin 30.5 PG (27.0-31.0) 29.5 PG (27.0-31.0) Mean Corpuscular Hemoglobin Concent 33.2 G/DL (32.0-36.0) 30.4 G/DL (32.0-36.0) L Red Cell Distribution Width 13.8 % (11.6-14.8) 13.5 % (11.6-14.8) Platelet Count 192 K/UL (150-450) 219 K/UL (150-450) Mean Platelet Volume 5.5 FL (6.5-10.1) L 5.2 FL (6.5-10.1) L Neutrophils (%) (Auto) % (45.0-75.0) 81.3 % (45.0-75.0) H Lymphocytes (%) (Auto) % (20.0-45.0) 12.4 % (20.0-45.0) L Monocytes (%) (Auto) % (1.0-10.0) 6.0 % (1.0-10.0) Eosinophils (%) (Auto) % (0.0-3.0) 0.0 % (0.0-3.0) Basophils (%) (Auto) % (0.0-2.0) 0.3 % (0.0-2.0) D-Dimer 0.20 mg/L FEU (0.00-0.49) Troponin I 0.000 ng/mL (0.000-0.056) 0.000 ng/mL (0.000-0.056) Sodium Level 140 MMOL/L (136-145) Potassium Level 3.8 MMOL/L (3.5-5.1) Chloride Level 106 MMOL/L (98-107) Carbon Dioxide Level 29 MMOL/L (21-32) Anion Gap 5 mmol/L (5-15) Blood Urea Nitrogen 6 mg/dL (7-18) L Creatinine 0.7 MG/DL (0.55-1.30) Estimat Glomerular Filtration Rate > 60 mL/min (>60) Glucose Level 127 MG/DL (74-106) H Hemoglobin A1c 5.1 % (4.3-6.0) Calcium Level 8.9 MG/DL (8.5-10.1) Magnesium Level 1.7 MG/DL (1.8-2.4) L Triglycerides Level 36 MG/DL (0-200) Cholesterol Level 160 MG/DL (< 200) LDL Cholesterol 80 mg/dL (<100) HDL Cholesterol 77 MG/DL (40-60) H Cholesterol/HDL Ratio 2.1 (3.3-4.4) L Lipase 78 U/L (73-393) Digoxin Level < 0.2 NG/ML (0.5-2.0) L Height (Feet): 6 Height (Inches): 3.00 Weight (Pounds): 215 Medications Current Medications Medications (Trade) Dose Ordered Sig/Nichelle Route PRN Reason Start Time Stop Time Status Last Admin Dose Admin Acetaminophen (Tylenol) 650 mg Q4H PRN ORAL Mild Pain (Pain Scale 1-3) 04/28/17 16:45 05/28/17 16:44 Al Hydroxide/Mg Hydroxide (Mylanta II) 30 ml Q6H PRN ORAL dyspepsia 04/28/17 16:45 05/28/17 16:44 Atorvastatin Calcium (Lipitor) 10 mg QHS ORAL 04/28/17 22:00 05/28/17 21:59 04/28/17 22:22 Carvedilol (Coreg) 6.25 mg BID ORAL 04/28/17 22:00 05/28/17 21:59 04/29/17 09:43 Dextrose (Dextrose 50%) STAT PRN IV Hypoglycemia 04/28/17 16:45 05/28/17 16:44 Dextrose/Sodium Chloride 1,000 ml @ 100 mls/hr Q10H IV 04/28/17 17:00 05/28/17 16:59 04/29/17 04:08 Digoxin (Lanoxin) 0.125 mg DAILY ORAL 04/29/17 09:00 05/29/17 08:59 04/29/17 09:45 Diphenhydramine HCl (Benadryl) 25 mg Q6H PRN ORAL Itching/Pruritis 04/28/17 16:45 05/28/17 16:44 04/29/17 00:59 Docusate Sodium (Colace) 100 mg EVERY 12 HOURS ORAL 04/28/17 21:00 05/28/17 20:59 04/29/17 09:42 Ferrous Sulfate (Feosol) 325 mg THREE TIMES A DAY ORAL 04/29/17 09:00 05/29/17 08:59 04/29/17 13:01 Gabapentin (Neurontin) 300 mg THREE TIMES A DAY ORAL 04/29/17 09:00 05/29/17 08:59 04/29/17 13:01 Hydromorphone HCl (Dilaudid) 1 mg Q4H PRN IVP For Severe Pain 04/28/17 21:15 05/05/17 21:14 04/29/17 09:47 Isosorbide Mononitrate (Imdur) 30 mg DAILY ORAL 04/30/17 09:00 05/30/17 08:59 Magnesium Sulfate 100 ml @ 100 mls/hr Q1H IVPB 04/29/17 13:30 04/29/17 16:29 04/29/17 14:23 Nitroglycerin (Ntg) 0.4 mg Q5M PRN SL Prn Chest Pain 04/28/17 16:45 05/28/17 16:44 Ondansetron HCl (Zofran) 4 mg Q6H PRN IVP Nausea & Vomiting 04/28/17 16:45 05/28/17 16:44 04/29/17 11:51 Pantoprazole (Protonix) 40 mg DAILY ORAL 04/29/17 09:00 05/29/17 08:59 04/29/17 09:43 Polyethylene Glycol (Miralax) 17 gm DAILYPRN PRN ORAL Constipation 04/28/17 16:45 05/28/17 16:44 Potassium Chloride (K-Dur) 40 meq TWICE A DAY ORAL 04/29/17 09:00 05/29/17 08:59 04/29/17 09:43 Sertraline HCl (Zoloft) 50 mg DAILY ORAL 04/29/17 09:00 05/29/17 08:59 04/29/17 09:39 Sotalol HCl (Betapace) 80 mg BID ORAL 04/29/17 13:30 05/29/17 13:29 04/29/17 14:22 Sucralfate (Carafate) 1 gm BEDTIME ORAL 04/28/17 22:30 05/28/17 22:29 04/28/17 22:22 Tramadol HCl (Ultram) 50 mg Q6H PRN ORAL For Moderate Pain 04/28/17 21:15 05/05/17 21:14 Zolpidem Tartrate (Ambien) 5 mg BEDTIME PRN ORAL Insomnia 04/28/17 21:30 05/05/17 21:29 Assessment/Plan Problem List: (1) UGIB (upper gastrointestinal bleed) ICD Codes: K92.2 - Gastrointestinal hemorrhage, unspecified SNOMED: 89030291 (2) Marfan syndrome ICD Codes: Q87.40 - Marfan's syndrome, unspecified SNOMED: 74971647 (3) Cardiac defibrillator in situ ICD Codes: Z95.810 - Presence of automatic (implantable) cardiac defibrillator SNOMED: 454784032 (4) Stented coronary artery ICD Codes: Z95.5 - Presence of coronary angioplasty implant and graft SNOMED: 55849020, 080828128 (5) ACS (acute coronary syndrome) ICD Codes: I24.9 - Acute ischemic heart disease, unspecified SNOMED: 979361138 Assessment/Plan NPO GI evaluation check h/h cardiology evaluation EUNICE GARCIA Apr 29, 2017 15:18
--- NOTE | 2017-04-29 15:24 | Cardiac Electrophysiology PN ---
Subjective Subjective Cardiology consult dictated [id number] Objective Last 24 Hour Vital Signs Date Time Temp Pulse Resp B/P (MAP) Pulse Ox O2 Delivery O2 Flow Rate FiO2 04/29/17 14:22 76 117/59 04/29/17 12:00 86 04/29/17 09:45 71 04/29/17 09:43 71 118/68 04/29/17 08:56 97.2 71 19 118/68 Room Air 04/29/17 08:00 64 04/29/17 04:38 96.8 73 18 129/82 97 Room Air 04/29/17 04:00 66 04/29/17 00:28 97.9 76 18 166/77 94 Room Air 04/29/17 00:00 65 04/28/17 22:21 100 140/71 04/28/17 21:12 98.0 100 18 140/71 99 Room Air 04/28/17 19:00 98.4 71 17 117/64 100 Room Air 04/28/17 16:31 98.4 75 16 132/69 100 Room Air Laboratory Tests Test 04/28/17 23:40 04/29/17 07:45 White Blood Count 4.5 K/UL (4.8-10.8) L 6.7 K/UL (4.8-10.8) Red Blood Count 4.34 M/UL (4.70-6.10) L 4.06 M/UL (4.70-6.10) L Hemoglobin 13.2 G/DL (14.2-18.0) L 12.0 G/DL (14.2-18.0) L Hematocrit 39.9 % (42.0-52.0) L 39.3 % (42.0-52.0) L Mean Corpuscular Volume 92 FL (80-99) 97 FL (80-99) Mean Corpuscular Hemoglobin 30.5 PG (27.0-31.0) 29.5 PG (27.0-31.0) Mean Corpuscular Hemoglobin Concent 33.2 G/DL (32.0-36.0) 30.4 G/DL (32.0-36.0) L Red Cell Distribution Width 13.8 % (11.6-14.8) 13.5 % (11.6-14.8) Platelet Count 192 K/UL (150-450) 219 K/UL (150-450) Mean Platelet Volume 5.5 FL (6.5-10.1) L 5.2 FL (6.5-10.1) L Neutrophils (%) (Auto) % (45.0-75.0) 81.3 % (45.0-75.0) H Lymphocytes (%) (Auto) % (20.0-45.0) 12.4 % (20.0-45.0) L Monocytes (%) (Auto) % (1.0-10.0) 6.0 % (1.0-10.0) Eosinophils (%) (Auto) % (0.0-3.0) 0.0 % (0.0-3.0) Basophils (%) (Auto) % (0.0-2.0) 0.3 % (0.0-2.0) D-Dimer 0.20 mg/L FEU (0.00-0.49) Troponin I 0.000 ng/mL (0.000-0.056) 0.000 ng/mL (0.000-0.056) Sodium Level 140 MMOL/L (136-145) Potassium Level 3.8 MMOL/L (3.5-5.1) Chloride Level 106 MMOL/L (98-107) Carbon Dioxide Level 29 MMOL/L (21-32) Anion Gap 5 mmol/L (5-15) Blood Urea Nitrogen 6 mg/dL (7-18) L Creatinine 0.7 MG/DL (0.55-1.30) Estimat Glomerular Filtration Rate > 60 mL/min (>60) Glucose Level 127 MG/DL (74-106) H Hemoglobin A1c 5.1 % (4.3-6.0) Calcium Level 8.9 MG/DL (8.5-10.1) Magnesium Level 1.7 MG/DL (1.8-2.4) L Triglycerides Level 36 MG/DL (0-200) Cholesterol Level 160 MG/DL (< 200) LDL Cholesterol 80 mg/dL (<100) HDL Cholesterol 77 MG/DL (40-60) H Cholesterol/HDL Ratio 2.1 (3.3-4.4) L Lipase 78 U/L (73-393) Digoxin Level < 0.2 NG/ML (0.5-2.0) CORWIN CAST Apr 29, 2017 15:24
[2017-04-29 16:00] VITALS: BP 119/67
[2017-04-29] MEDS: DiphenhydrAMINE 50mg/ml Inj IVP PRN (18:51)
[2017-04-29 20:00] VITALS: BP 121/65
[2017-04-29] MEDS: Sucralfate 1gm tab ORAL SCH (20:46)
--- NOTE | 2017-04-29 21:14 | History and Physical ---
History of Present Illness General Date patient seen: Apr 29, 2017 Time patient seen: 14:00 Reason for Hospitalization: Chest Pain, Upper GI bleed Present Illness HPI 31y/o male with pmh of Marfan's syndrome (per pt dx 2013), VF/VT s/p ICD, h/o in 2011 per pt, Afib (on eliquis), CVA w/ residual L sided weakness, ASD s/p closure, spontaneous pneumothorax in 2013, HTN, HLD, 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 who presents with chest pain, abd pain and hematemesis. Pt states around 8AM he had episode of emesis w/ blood breaks and then 9AM he had coffee- ground emesis. He also c/o chest pain and abd pain which started today w/ intermittent episodes. Chest pain is 10/10 substernal sharp/tearing sensation radiation to upper back. C/o nausea, some SOB, but no f/c, d/c, dysuria. Denies melena, BRBPR, hematochezia. Pt lives in [place] and normally goes to [facility] for medical care, but is visit [facility] at this time. In ED, hgb 14. Trop neg. CT angio chest ordered but pt w/ iodine allergy so received solumedrol and benadryl w/ plan for CT in 24h. Pt admitted to obs. Underwent CT angio chest which showed no e/o PE or dissection. Hgb slightly downtrending. GI consulted w/ plan for EGD tomorrow. Eliquis on hold. Allergies: Coded Allergies: AVOCADO (Verified Allergy, Unknown, 04/28/17) BANANA (Verified Allergy, Unknown, 04/28/17) KETOROLAC (Verified Allergy, Unknown, 04/28/17) Kiwi (Verified Allergy, Unknown, 04/28/17) LATEX, NATURAL RUBBER (Verified Allergy, Unknown, 04/28/17) MORPHINE (Verified Allergy, Unknown, 04/28/17) ONION (Verified Allergy, Unknown, 04/28/17) PROMETHAZINE (Verified Allergy, Unknown, 04/28/17) PROPOFOL (Verified Allergy, Unknown, 04/28/17) Uncoded Allergies: IODINATED CONTRAST (Allergy, Unknown, 04/28/17) Medication History Scheduled Apixaban (Eliquis), 5 MG PO BID, (Reported) Atorvastatin Calcium* (Lipitor*), 10 MG ORAL DAILY, (Reported) Carvedilol* (Carvedilol*), 6.25 MG ORAL BID, (Reported) Digoxin* (Digoxin*), 125 MCG ORAL DAILY, (Reported) Ferrous Sulfate* (Ferrous Sulfate*), 325 MG ORAL THREE TIMES A DAY, (Reported) Gabapentin* (Gabapentin*), 300 MG ORAL THREE TIMES A DAY, (Reported) Hydromorphone HCl (Dilaudid), 2 MG ORAL Q4H, (Reported) Isosorbide Mononitrate (Isosorbide Mononitrate Er), 60 MG PO DAILY, (Reported) Pantoprazole* (Pantoprazole*), 40 MG ORAL DAILY, (Reported) Potassium Chloride* (K-Dur*), 40 MEQ ORAL TWICE A DAY, (Reported) Sertraline Hcl* (Zoloft*), 50 MG ORAL DAILY, (Reported) Sotalol HCl (Sotalol), 80 MG PO BID, (Reported) Spironolact/Hydrochlorothiazid (Spironolactone-Hctz 25-25 Tab), 1 TAB ORAL DAILY , (Reported) Sucralfate* (Carafate*), 1 GM ORAL BEDTIME, (Reported) Scheduled PRN Tramadol Hcl* (Ultram*), 50 MG ORAL Q6H PRN for For Pain, (Reported) Zolpidem Tartrate* (Zolpidem Tartrate*), 10 MG ORAL BEDTIME PRN for Insomnia, ( Reported) Patient History History Provided By: Patient, Medical Record Healthcare decision maker Resuscitation status Full Code Advanced Directive on File Yes Past Medical/Surgical History Past Medical/Surgical History: (1) Paroxysmal A-fib (2) Spontaneous pneumothorax (3) Marfan syndrome (4) ASD s/p closure (5) 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 (6) H/o [place] in 2011 (7) VF/VT s/p ICD Family History Family History: Marfan syndrome Social History Social History: (1) No significant social history Review of Systems Constitutional: Reports: weakness Eye: Reports: no symptoms ENT: Reports: no symptoms Respiratory: Reports: shortness of breath Cardiovascular: Reports: chest pain Gastrointestinal: Reports: abdominal pain, nausea, vomiting, hematemesis Genitourinary: Reports: no symptoms Musculoskeletal: Reports: no symptoms Skin: Reports: no symptoms Psychiatric: Reports: no symptoms Neurological: Reports: no symptoms Endocrine: Reports: no symptoms Hematologic/Lymphatic: Reports: no symptoms All Other Systems: negative except mentioned in HPI Physical Exam Physical Exam Narrative General: alert, cooperative, no distress, appears stated age Head: normocephalic, without obvious abnormality, atraumatic Eyes: conjunctivae/corneas clear. PERRL, EOM's intact Throat: lips, mucosa, and tongue normal. MMM Neck: supple, symmetrical, trachea midline, and no JVD Lungs: clear to auscultation bilaterally Heart: regular rate and rhythm, S1, S2 normal, no murmur, click, rub or gallop Abdomen: soft, non-tender, non-distended, bowel sounds normal; no masses or organomegaly Extremities: extremities normal, atraumatic, no cyanosis or edema Pulses: 2+ and symmetric Skin: skin color, texture, turgor normal; no rashes or lesions Neurologic: grossly normal, no focal deficits Last 24 Hour Vital Signs Date Time Temp Pulse Resp B/P (MAP) Pulse Ox O2 Delivery O2 Flow Rate FiO2 04/29/17 20:02 80 123/50 04/29/17 20:00 97.2 73 20 121/65 99 Room Air 04/29/17 18:00 79 119/67 04/29/17 16:00 79 04/29/17 16:00 97.8 80 19 119/67 94 Room Air 04/29/17 14:22 76 117/59 04/29/17 12:00 96.8 67 19 123/72 99 Room Air 04/29/17 12:00 86 04/29/17 09:45 71 04/29/17 09:43 71 118/68 04/29/17 08:56 97.2 71 19 118/68 Room Air 04/29/17 08:00 64 04/29/17 04:38 96.8 73 18 129/82 97 Room Air 04/29/17 04:00 66 04/29/17 00:28 97.9 76 18 166/77 94 Room Air 04/29/17 00:00 65 04/28/17 22:21 100 140/71 04/28/17 21:12 98.0 100 18 140/71 99 Room Air Intake and Output 04/29/17 04/30/17 19:00 07:00 Output Total 300 ml Balance -300 ml Output Urine Total 300 ml # Voids 1 Laboratory Tests Test 04/28/17 23:40 04/29/17 07:45 White Blood Count 4.5 K/UL (4.8-10.8) L 6.7 K/UL (4.8-10.8) Red Blood Count 4.34 M/UL (4.70-6.10) L 4.06 M/UL (4.70-6.10) L Hemoglobin 13.2 G/DL (14.2-18.0) L 12.0 G/DL (14.2-18.0) L Hematocrit 39.9 % (42.0-52.0) L 39.3 % (42.0-52.0) L Mean Corpuscular Volume 92 FL (80-99) 97 FL (80-99) Mean Corpuscular Hemoglobin 30.5 PG (27.0-31.0) 29.5 PG (27.0-31.0) Mean Corpuscular Hemoglobin Concent 33.2 G/DL (32.0-36.0) 30.4 G/DL (32.0-36.0) L Red Cell Distribution Width 13.8 % (11.6-14.8) 13.5 % (11.6-14.8) Platelet Count 192 K/UL (150-450) 219 K/UL (150-450) Mean Platelet Volume 5.5 FL (6.5-10.1) L 5.2 FL (6.5-10.1) L Neutrophils (%) (Auto) % (45.0-75.0) 81.3 % (45.0-75.0) H Lymphocytes (%) (Auto) % (20.0-45.0) 12.4 % (20.0-45.0) L Monocytes (%) (Auto) % (1.0-10.0) 6.0 % (1.0-10.0) Eosinophils (%) (Auto) % (0.0-3.0) 0.0 % (0.0-3.0) Basophils (%) (Auto) % (0.0-2.0) 0.3 % (0.0-2.0) D-Dimer 0.20 mg/L FEU (0.00-0.49) Troponin I 0.000 ng/mL (0.000-0.056) 0.000 ng/mL (0.000-0.056) Sodium Level 140 MMOL/L (136-145) Potassium Level 3.8 MMOL/L (3.5-5.1) Chloride Level 106 MMOL/L (98-107) Carbon Dioxide Level 29 MMOL/L (21-32) Anion Gap 5 mmol/L (5-15) Blood Urea Nitrogen 6 mg/dL (7-18) L Creatinine 0.7 MG/DL (0.55-1.30) Estimat Glomerular Filtration Rate > 60 mL/min (>60) Glucose Level 127 MG/DL (74-106) H Hemoglobin A1c 5.1 % (4.3-6.0) Calcium Level 8.9 MG/DL (8.5-10.1) Magnesium Level 1.7 MG/DL (1.8-2.4) L Triglycerides Level 36 MG/DL (0-200) Cholesterol Level 160 MG/DL (< 200) LDL Cholesterol 80 mg/dL (<100) HDL Cholesterol 77 MG/DL (40-60) H Cholesterol/HDL Ratio 2.1 (3.3-4.4) L Lipase 78 U/L (73-393) Digoxin Level < 0.2 NG/ML (0.5-2.0) L Height (Feet): 6 Height (Inches): 3.00 Weight (Pounds): 215 Medications Current Medications Medications (Trade) Dose Ordered Sig/Nichelle Route PRN Reason Start Time Stop Time Status Last Admin Dose Admin Acetaminophen (Tylenol) 650 mg Q4H PRN ORAL Mild Pain (Pain Scale 1-3) 04/28/17 16:45 05/28/17 16:44 Al Hydroxide/Mg Hydroxide (Mylanta II) 30 ml Q6H PRN ORAL dyspepsia 04/28/17 16:45 05/28/17 16:44 Atorvastatin Calcium (Lipitor) 10 mg QHS ORAL 04/28/17 22:00 05/28/17 21:59 04/29/17 20:46 Carvedilol (Coreg) 6.25 mg BID ORAL 04/28/17 22:00 05/28/17 21:59 11/9/17 18:00 Dextrose (Dextrose 50%) STAT PRN IV Hypoglycemia 04/28/17 16:45 05/28/17 16:44 Dextrose/Sodium Chloride 1,000 ml @ 100 mls/hr Q10H IV 04/28/17 17:00 05/28/17 16:59 04/29/17 04:08 Digoxin (Lanoxin) 0.125 mg DAILY ORAL 04/29/17 09:00 05/29/17 08:59 04/29/17 09:45 Diphenhydramine HCl (Benadryl) 25 mg Q6H PRN ORAL Itching/Pruritis 04/28/17 16:45 05/28/17 16:44 04/29/17 00:59 Diphenhydramine HCl (Benadryl) 50 mg Q6H PRN IVP Itching 04/29/17 18:30 05/29/17 18:29 04/29/17 18:51 Docusate Sodium (Colace) 100 mg EVERY 12 HOURS ORAL 04/28/17 21:00 05/28/17 20:59 04/29/17 20:46 Ferrous Sulfate (Feosol) 325 mg THREE TIMES A DAY ORAL 04/29/17 09:00 05/29/17 08:59 04/29/17 18:02 Gabapentin (Neurontin) 300 mg THREE TIMES A DAY ORAL 04/29/17 09:00 05/29/17 08:59 04/29/17 18:03 Hydromorphone HCl (Dilaudid) 1 mg Q4H PRN IVP For Severe Pain 04/28/17 21:15 05/05/17 21:14 04/29/17 17:59 Isosorbide Mononitrate (Imdur) 30 mg DAILY ORAL 04/30/17 09:00 05/30/17 08:59 Nitroglycerin (Ntg) 0.4 mg Q5M PRN SL Prn Chest Pain 04/28/17 16:45 05/28/17 16:44 Ondansetron HCl (Zofran) 4 mg Q6H PRN IVP Nausea & Vomiting 04/28/17 16:45 05/28/17 16:44 04/29/17 11:51 Pantoprazole (Protonix) 40 mg DAILY ORAL 04/29/17 09:00 12/9/17 08:59 04/29/17 09:43 Polyethylene Glycol (Miralax) 17 gm DAILYPRN PRN ORAL Constipation 04/28/17 16:45 05/28/17 16:44 Potassium Chloride (K-Dur) 40 meq TWICE A DAY ORAL 04/29/17 09:00 05/29/17 08:59 04/29/17 18:03 Sertraline HCl (Zoloft) 50 mg DAILY ORAL 04/29/17 09:00 05/29/17 08:59 04/29/17 09:39 Sotalol HCl (Betapace) 80 mg BID ORAL 04/29/17 13:30 05/29/17 13:29 04/29/17 20:02 Sucralfate (Carafate) 1 gm BEDTIME ORAL 04/28/17 22:30 05/28/17 22:29 04/29/17 20:46 Tramadol HCl (Ultram) 50 mg Q6H PRN ORAL For Moderate Pain 04/28/17 21:15 05/05/17 21:14 Zolpidem Tartrate (Ambien) 5 mg BEDTIME PRN ORAL Insomnia 04/28/17 21:30 05/05/17 21:29 Assessment/Plan Problem List: (1) Acute upper GI bleed ICD Codes: K92.2 - Gastrointestinal hemorrhage, unspecified SNOMED: 54027743 (2) Atypical chest pain ICD Codes: R07.89 - Other chest pain SNOMED: 962733792 (3) Elevated lipase ICD Codes: R74.8 - Abnormal levels of other serum enzymes SNOMED: 676416188 (4) Marfan syndrome ICD Codes: Q87.40 - Marfan's syndrome, unspecified SNOMED: 20877039 (5) H/o KS in 2011 (6) H/o CVA w/ residual L sided weakness (7) VF/VT s/p ICD (8) ASD s/p closure (9) 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 (10) Paroxysmal A-fib ICD Codes: I48.0 - Paroxysmal atrial fibrillation SNOMED: 573087001 (11) H/o spontaneous pneumothorax Status: stable Assessment/Plan GI consulted, appreciate rec's CLD now and then NPO at [facility] for EGD tomorrow mIVFs Hold Eliquis Type and screen, 2 large bore IVs Trend CBC Transfuse for hgb<7.5 or active bleeding PPI Pulm/critical care consulted F/u CT angio chest--no PE or dissection Cardiology consulted Trop neg x 3 F/u TTE Plan for nuc stress test per cardiology Cont other home meds SCDs for DVT ppx FULL CODE D/w pt, RN, SW/CM, GI, pulm/critical care, cardiology regarding mgmt and dispo Wandy Uribe M.D. Apr 29, 2017 21:14
[2017-04-30] VITALS: BP 114/66
[2017-04-30] MEDS: D5 1/2NS 1,000 ML IV SCH ×3 (00:04→19:00)
[2017-04-30] MEDS: DiphenhydrAMINE 50mg/ml Inj IVP PRN ×4 (01:05→20:22)
[2017-04-30] MEDS: HYDROmorphone 1mg/ml Carpuject IVP PRN ×5 (03:09→20:30)
[2017-04-30 04:00] VITALS: BP 120/64
--- NOTE | 2017-04-30 06:59 | Anethesia Preoperative Eval ---
Anesthesia Pre-op PMH/ROS General Date of Evaluation: Apr 30, 2017 Time of Evaluation: 06:54 Anesthesiologist: henry ASA Score: ASA 4 Mallampati Score Class I : Soft palate, uvula, fauces, pillars visible Class II: Soft palate, uvula, fauces visible Class III: Soft palate, base of uvula visible Class IV: Only hard plate visible Surgeon: kim Diagnosis: abdominal pain, hematemesis Surgical Procedure: egd Anesthesia History: none Social History: smoking - nonsmoker Allergies: Coded Allergies: AVOCADO (Verified Allergy, Unknown, 04/28/17) BANANA (Verified Allergy, Unknown, 04/28/17) KETOROLAC (Verified Allergy, Unknown, 04/28/17) Kiwi (Verified Allergy, Unknown, 04/28/17) LATEX, NATURAL RUBBER (Verified Allergy, Unknown, 04/28/17) MORPHINE (Verified Allergy, Unknown, 04/28/17) ONION (Verified Allergy, Unknown, 04/28/17) PROMETHAZINE (Verified Allergy, Unknown, 04/28/17) PROPOFOL (Verified Allergy, Unknown, 04/28/17) Uncoded Allergies: IODINATED CONTRAST (Allergy, Unknown, 04/28/17) Medications: see eMAR Past Medical History Cardiovascular: Reports: NV, other - chest pain (atypical), acute coronary syndrome, a-fib, asd closure, Pulmonary: Reports: other - pulmonary hypertension, spontaneous pneumothorax Neurologic/Psychiatric: Reports: CVA - left sided weakness Hematology/Immune: Reports: other - avm Musculoskeletal/Integumentary: Reports: other - marfan's syndrome Anesthesia Pre-op Phys. Exam Physician Exam Last Vital Signs Date Time Temp Pulse Resp B/P (MAP) Pulse Ox O2 Delivery O2 Flow Rate FiO2 04/30/17 04:00 97.5 72 20 120/64 98 Room Air Anesthesia Pre-op A/P Labs Hematology Test 04/29/17 07:45 White Blood Count 6.7 K/UL (4.8-10.8) Red Blood Count 4.06 M/UL (4.70-6.10) L Hemoglobin 12.0 G/DL (14.2-18.0) L Hematocrit 39.3 % (42.0-52.0) L Mean Corpuscular Volume 97 FL (80-99) Mean Corpuscular Hemoglobin 29.5 PG (27.0-31.0) Mean Corpuscular Hemoglobin Concent 30.4 G/DL (32.0-36.0) L Red Cell Distribution Width 13.5 % (11.6-14.8) Platelet Count 219 K/UL (150-450) Mean Platelet Volume 5.2 FL (6.5-10.1) L Neutrophils (%) (Auto) 81.3 % (45.0-75.0) H Lymphocytes (%) (Auto) 12.4 % (20.0-45.0) L Monocytes (%) (Auto) 6.0 % (1.0-10.0) Eosinophils (%) (Auto) 0.0 % (0.0-3.0) Basophils (%) (Auto) 0.3 % (0.0-2.0) Chemistry Test 04/29/17 07:45 Sodium Level 140 MMOL/L (136-145) Potassium Level 3.8 MMOL/L (3.5-5.1) Chloride Level 106 MMOL/L (98-107) Carbon Dioxide Level 29 MMOL/L (21-32) Anion Gap 5 mmol/L (5-15) Blood Urea Nitrogen 6 mg/dL (7-18) L Creatinine 0.7 MG/DL (0.55-1.30) Estimat Glomerular Filtration Rate > 60 mL/min (>60) Glucose Level 127 MG/DL (74-106) H Hemoglobin A1c 5.1 % (4.3-6.0) Calcium Level 8.9 MG/DL (8.5-10.1) Magnesium Level 1.7 MG/DL (1.8-2.4) L Troponin I 0.000 ng/mL (0.000-0.056) Triglycerides Level 36 MG/DL (0-200) Cholesterol Level 160 MG/DL (< 200) LDL Cholesterol 80 mg/dL (<100) HDL Cholesterol 77 MG/DL (40-60) H Cholesterol/HDL Ratio 2.1 (3.3-4.4) L Lipase 78 U/L (73-393) Risk Assessment & Plan Assessment: asa4 Plan: MIQUEL Payton Apr 30, 2017 06:59
[2017-04-30 08:00] VITALS: BP 120/65
--- NOTE | 2017-04-30 08:00 | Consultation ---
DATE OF CONSULTATION: 04/29/2017 CARDIAC ELECTROPHYSIOLOGY CONSULTATION CONSULTING PHYSICIAN: Fermin Mishra M.D. REFERRING PHYSICIAN: Sue Gifford M.D. REASON FOR CONSULTATION: Evaluation of the patient's defibrillator and palpitation. HISTORY OF PRESENT ILLNESS: The patient is a 31-year-old gentleman with history of as well as history of Marfan syndrome, who underwent initially Medtronic defibrillator implantation in 2011, which was then changed to a Biotronik defibrillator as initial leads got infected. The patient presented to the emergency room complaining of vomiting blood as well as occasional chest pain. The patient states that he has history of heart attacks in the past, but every time they went up for the stent, he had a cardiac arrest. He also has history of atrial fibrillation. For that, he is on Eliquis. The patient is recently on [place] when all those investigations took place. At the time of my evaluation, the patient denies any chest pain, palpitation, or shortness of breath. The patient has history of multiple EGDs done, most recent one at [place] for GI bleeding in November of this year and they found there was no ulcer or AV malformation. PAST MEDICAL HISTORY: As mentioned above. MEDICATIONS: 1. Aldactone/hydrochlorothiazide. 2. Sotalol 80 mg b.i.d. 3. Isordil 60 mg daily. 4. Digoxin 125 mcg daily. 5. Coreg 6.25 mg b.i.d. 6. Lipitor. 7. Apixaban. SOCIAL HISTORY: He denies smoking or drinking alcohol. Denies history of IV drug use or alcohol use. FAMILY HISTORY: Noncontributory. REVIEW OF SYSTEMS: His review of systems was thoroughly performed and was negative other than what was mentioned in the history of present illness. PHYSICAL EXAMINATION: VITAL SIGNS: Show blood pressure of 113/59, pulse 76, respirations 18, and he is afebrile. HEAD AND NECK: No JVD. LUNGS: Clear. CARDIOVASCULAR: Regular S1 and S2 with no gallop or rub. Defibrillator is in the left subclavian. There are two incisions. ABDOMEN: Soft. EXTREMITIES: No pitting edema. DIAGNOSTIC DATA: His EKG showed atrially paced rhythm with inferolateral T-wave abnormalities with inferolateral ischemia. LABORATORY DATA: Labs show white count 6.3, hemoglobin of 12, hematocrit of 39.3, and platelet count of 219. Sodium 140, potassium 3.8, BUN of 6, creatinine 0.7, and glucose of 127. Troponin is negative x3. ASSESSMENT AND PLAN: 1. Chest pain. The patient was ruled out for myocardial infarction. This is likely secondary to vomiting from a gastrointestinal source. We will get an echocardiogram for further evaluation. His EKG suggestive of inferolateral ischemia, however, no prior EKG is available. We will consider doing an adenosine Cardiolite in the morning. 2. History of cardiomyopathy. The patient is on digoxin, Coreg, Aldactone, as well as sotalol. 3. Paroxysmal atrial fibrillation. He is on Sotalol 80 mg b.i.d. and digoxin and Coreg. Eliquis held in view of gastrointestinal bleed. 4. Recurrent gastrointestinal bleed. Need evaluation by Gastroenterology. Eliquis on hold. 5. History of Marfan syndrome. The patient will be monitored for aortic aneurysm. 6. History of port placement for lack of intravenous access. 7. History of pulmonary hypertension. 8. History of cerebrovascular accident in 2007. Thank you very much, Dr. Gifford, for allowing me to participate in the care of this patient. Please do not hesitate to contact me if you have any questions regarding my evaluation. Fermin Mishra M.D. DR: BETH JOB#: [id number] CC:
[2017-04-30 08:42] LABS: BASOPHILS % (AUTO) 0.2 % (0.0-2.0); MEAN CORPUSCULAR HEMOGLOBIN 29.8 PG (27.0-31.0); MEAN CORPUSCULAR HGB CONC 30.5 G/DL (32.0-36.0); MEAN CORPUSCULAR VOLUME 98 FL (80-99); MEAN PLATELET VOLUME 5.1 FL (6.5-10.1); MONOCYTES % (AUTO) 7.7 % (1.0-10.0); NEUTROPHILS % (AUTO) 75.1 % (45.0-75.0); PLATELET COUNT 197 K/UL (150-450); RED CELL DISTRIBUTION WIDTH 13.9 % (11.6-14.8); WHITE BLOOD COUNT 9.3 K/UL (4.8-10.8)
[2017-04-30 08:45] LABS: ANION GAP 5 mmol/L (5-15); CARBON DIOXIDE 30 MMOL/L (21-32); CHLORIDE 105 MMOL/L (98-107); CREATININE 0.7 MG/DL (0.55-1.30); GLOMERULAR FILTRATION RATE > 60 mL/min (>60); MAGNESIUM 2.2 MG/DL (1.8-2.4); POTASSIUM 4.3 MMOL/L (3.5-5.1); SODIUM 140 MMOL/L (136-145)
[2017-04-30 08:46] LABS: PROTHROMBIN TIME 10.4 SEC (9.30-11.50)
[2017-04-30] MEDS: Sotalol 80mg tab ORAL SCH ×2 (09:00→17:48)
[2017-04-30] MEDS: Sertraline 50mg tab ORAL SCH (09:00)
[2017-04-30] MEDS: Carvedilol 6.25mg Tab ORAL SCH ×2 (09:00→17:48)
[2017-04-30] MEDS: Imdur 30mg tab ORAL SCH (09:00)
[2017-04-30] MEDS: Digoxin 0.125mg tab ORAL SCH (09:00)
[2017-04-30] MEDS: Docusate 100mg cap ORAL SCH ×2 (09:00→21:00)
[2017-04-30] MEDS ORDERED: Lexiscan 0.4mg/5ml syringe IV ONE (10:15)
[2017-04-30 12:00] VITALS: BP 105/65
--- NOTE | 2017-04-30 12:30 | Cardiac Electrophysiology PN ---
Assessment/Plan Assessment/Plan 1. Chest pain. Ruled out for myocardial infarction.Likely secondary to vomiting from a gastrointestinal source. Echocardiogram showed EF 65%. His EKG suggestive of inferolateral ischemia, however, no prior EKG is available. Adenosine Cardiolite results pending. 2. History of cardiomyopathy. EF Nl. The patient is on digoxin, Coreg, Aldactone , as well as sotalol. 3. Paroxysmal atrial fibrillation. In SR on Sotalol 80 mg b.i.d.,digoxin and Coreg. Eliquis held in view of gastrointestinal bleed. 4. Recurrent gastrointestinal bleed. Eliquis on hold. 5. History of Marfan syndrome. The patient will be monitored for aortic aneurysm. 6. History of port placement for lack of intravenous access. 7. History of pulmonary hypertension. 8. History of cerebrovascular accident in 2007. ORAL RN Subjective Subjective Feeling better. Is Having nuclear stress test today.No arrhythmias reported. Objective Last 24 Hour Vital Signs Date Time Temp Pulse Resp B/P (MAP) Pulse Ox O2 Delivery O2 Flow Rate FiO2 04/30/17 08:00 71 04/30/17 08:00 97.5 70 20 120/65 99 Room Air 04/30/17 07:48 97.5 04/30/17 04:00 97.5 72 20 120/64 98 Room Air 04/30/17 04:00 61 04/30/17 00:00 96.8 64 20 114/66 96 Room Air 04/30/17 00:00 71 04/29/17 20:02 80 123/50 04/29/17 20:00 97.2 73 20 121/65 99 Room Air 04/29/17 20:00 100 04/29/17 18:00 79 119/67 04/29/17 16:00 79 04/29/17 16:00 97.8 80 19 119/67 94 Room Air 04/29/17 14:22 76 117/59 Intake and Output 04/30/17 05/01/17 19:00 07:00 Intake Total 100 ml Output Total 500 ml Balance -400 ml IV Total 100 ml Output Urine Total 500 ml Laboratory Tests Test 04/30/17 07:10 White Blood Count 9.3 K/UL (4.8-10.8) Red Blood Count 4.10 M/UL (4.70-6.10) L Hemoglobin 12.2 G/DL (14.2-18.0) L Hematocrit 40.1 % (42.0-52.0) L Mean Corpuscular Volume 98 FL (80-99) Mean Corpuscular Hemoglobin 29.8 PG (27.0-31.0) Mean Corpuscular Hemoglobin Concent 30.5 G/DL (32.0-36.0) L Red Cell Distribution Width 13.9 % (11.6-14.8) Platelet Count 197 K/UL (150-450) Mean Platelet Volume 5.1 FL (6.5-10.1) L Neutrophils (%) (Auto) 75.1 % (45.0-75.0) H Lymphocytes (%) (Auto) 17.0 % (20.0-45.0) L Monocytes (%) (Auto) 7.7 % (1.0-10.0) Eosinophils (%) (Auto) 0.0 % (0.0-3.0) Basophils (%) (Auto) 0.2 % (0.0-2.0) Prothrombin Time 10.4 SEC (9.30-11.50) Prothromb Time International Ratio 1.0 (0.9-1.1) Activated Partial Thromboplast Time 22 SEC (23-33) L Sodium Level 140 MMOL/L (136-145) Potassium Level 4.3 MMOL/L (3.5-5.1) Chloride Level 105 MMOL/L (98-107) Carbon Dioxide Level 30 MMOL/L (21-32) Anion Gap 5 mmol/L (5-15) Blood Urea Nitrogen 6 mg/dL (7-18) L Creatinine 0.7 MG/DL (0.55-1.30) Estimat Glomerular Filtration Rate > 60 mL/min (>60) Glucose Level 95 MG/DL (74-106) Calcium Level 9.0 MG/DL (8.5-10.1) Magnesium Level 2.2 MG/DL (1.8-2.4) Lipase 65 U/L (73-393) L Objective HEAD AND NECK: No JVD. LUNGS: Clear. CARDIOVASCULAR: Regular S1 and S2 with no gallop or rub. Defibrillator is in the left subclavian. ABDOMEN: Soft. EXTREMITIES: No pitting edema. CORWIN BELLAMY Apr 30, 2017 12:30
--- NOTE | 2017-04-30 13:30 | General Progress Note ---
Assessment/Plan Problem List: (1) Acute upper GI bleed ICD Codes: K92.2 - Gastrointestinal hemorrhage, unspecified SNOMED: 23077190 (2) Atypical chest pain ICD Codes: R07.89 - Other chest pain SNOMED: 635906903 (3) Elevated lipase ICD Codes: R74.8 - Abnormal levels of other serum enzymes SNOMED: 642323178 (4) Marfan syndrome ICD Codes: Q87.40 - Marfan's syndrome, unspecified SNOMED: 60655320 (5) H/o [place] in 2011 (6) H/o CVA w/ residual L sided weakness (7) VF/VT s/p ICD (8) ASD s/p closure (9) 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 (10) Paroxysmal A-fib ICD Codes: I48.0 - Paroxysmal atrial fibrillation SNOMED: 083097032 (11) H/o spontaneous pneumothorax Status: stable Assessment/Plan GI consulted, appreciate rec's EGD canceled as pt awaiting cardiac stress test Per GI, EGD can be done as an outpt as not has had no further bleeding and hgb is stable Restart Eliquis (OK per GI) Trend CBC Transfuse for hgb<7.5 or active bleeding PPI Pulm/critical care consulted F/u CT angio chest--no PE or dissection Cardiology consulted Trop neg x 3 F/u TTE--normal EF F/u nuc stress test per cardiology Cont other home meds Pain control, bowel regimen Supportive care SCDs and Eliquis for DVT ppx FULL CODE D/w pt, RN, SW/CM, GI, pulm/critical care, cardiology regarding mgmt and dispo Subjective Date patient seen: Apr 30, 2017 Time patient seen: 13:30 ROS Limited/Unobtainable: No Constitutional: Reports: no symptoms HEENT: Reports: no symptoms Cardiovascular: Reports: chest pain Respiratory: Reports: shortness of breath Gastrointestinal/Abdominal: Reports: abdominal pain, nausea Genitourinary: Reports: no symptoms Neurologic/Psychiatric: Reports: no symptoms Endocrine: Reports: no symptoms Hematologic/Lymphatic: Reports: no symptoms Allergies: Coded Allergies: AVOCADO (Verified Allergy, Unknown, 04/28/17) BANANA (Verified Allergy, Unknown, 04/28/17) KETOROLAC (Verified Allergy, Unknown, 04/28/17) Kiwi (Verified Allergy, Unknown, 04/28/17) LATEX, NATURAL RUBBER (Verified Allergy, Unknown, 04/28/17) MORPHINE (Verified Allergy, Unknown, 04/28/17) ONION (Verified Allergy, Unknown, 04/28/17) PROMETHAZINE (Verified Allergy, Unknown, 04/28/17) PROPOFOL (Verified Allergy, Unknown, 04/28/17) Uncoded Allergies: IODINATED CONTRAST (Allergy, Unknown, 04/28/17) All Systems: reviewed and negative except above Subjective No acute o/n events EGD canceled as pt awaiting stress test CBC stable Pt doing well. Pain controlled. No further bleeding noted. Objective Last 24 Hour Vital Signs Date Time Temp Pulse Resp B/P (MAP) Pulse Ox O2 Delivery O2 Flow Rate FiO2 04/30/17 12:01 97.5 04/30/17 08:00 71 04/30/17 08:00 97.5 70 20 120/65 99 Room Air 04/30/17 04:00 97.5 72 20 120/64 98 Room Air 04/30/17 04:00 61 04/30/17 00:00 96.8 64 20 114/66 96 Room Air 04/30/17 00:00 71 04/29/17 20:02 80 123/50 04/29/17 20:00 97.2 73 20 121/65 99 Room Air 04/29/17 20:00 100 04/29/17 18:00 79 119/67 04/29/17 16:00 79 04/29/17 16:00 97.8 80 19 119/67 94 Room Air 04/29/17 14:22 76 117/59 Intake and Output 04/30/17 05/01/17 19:00 07:00 Intake Total 100 ml Output Total 500 ml Balance -400 ml IV Total 100 ml Output Urine Total 500 ml Laboratory Tests 04/30/17 07:10: White Blood Count 9.3, Red Blood Count 4.10L, Hemoglobin 12.2L, Hematocrit 40.1L , Mean Corpuscular Volume 98, Mean Corpuscular Hemoglobin 29.8, Mean Corpuscular Hemoglobin Concent 30.5L, Red Cell Distribution Width 13.9, Platelet Count 197, Mean Platelet Volume 5.1L, Neutrophils (%) (Auto) 75.1H, Lymphocytes (%) (Auto) 17.0L, Monocytes (%) (Auto) 7.7, Eosinophils (%) (Auto) 0.0, Basophils (%) (Auto) 0.2, Prothrombin Time 10.4, Prothromb Time International Ratio 1.0, Activated Partial Thromboplast Time 22L, Sodium Level 140, Potassium Level 4.3, Chloride Level 105, Carbon Dioxide Level 30, Anion Gap 5, Blood Urea Nitrogen 6L, Creatinine 0.7, Estimat Glomerular Filtration Rate > 60, Glucose Level 95, Calcium Level 9.0, Magnesium Level 2.2, Lipase 65L Height (Feet): 6 Height (Inches): 6.00 Weight (Pounds): 215 Objective General: alert, cooperative, no distress, appears stated age Head: normocephalic, without obvious abnormality, atraumatic Eyes: conjunctivae/corneas clear. PERRL, EOM's intact Throat: lips, mucosa, and tongue normal. MMM Neck: supple, symmetrical, trachea midline, and no JVD Lungs: clear to auscultation bilaterally Heart: regular rate and rhythm, S1, S2 normal, no murmur, click, rub or gallop Abdomen: soft, non-tender, non-distended, bowel sounds normal; no masses or organomegaly Extremities: extremities normal, atraumatic, no cyanosis or edema Pulses: 2+ and symmetric Skin: skin color, texture, turgor normal; no rashes or lesions Neurologic: grossly normal, no focal deficits Wandy Uribe M.D. Apr 30, 2017 13:30
--- NOTE | 2017-04-30 13:40 | GI Progress Note ---
Assessment/Plan Problems: (1) UGIB (upper gastrointestinal bleed) ICD Codes: K92.2 - Gastrointestinal hemorrhage, unspecified SNOMED: 53724338 (2) Marfan syndrome ICD Codes: Q87.40 - Marfan's syndrome, unspecified SNOMED: 72944536 (3) H/o [place] in 2011 (4) Acute upper GI bleed ICD Codes: K92.2 - Gastrointestinal hemorrhage, unspecified SNOMED: 05116173 (5) 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 Status: stable Status Narrative Discussed with Dr. Sanchez. Assessment/Plan 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 history of EV patient has pacemaker EGD cancelled today due to stress test, will defer procedure to outpatient given no recurrent vomiting and stable H&H. OB stool r/o GI bleed can resume eliquis per cardiology monitor H&H, prn transfusions bowel regime ppi fu labs, lipase dc planning Subjective Subjective no episodes of vomiting Objective Last 24 Hour Vital Signs Date Time Temp Pulse Resp B/P (MAP) Pulse Ox O2 Delivery O2 Flow Rate FiO2 04/30/17 12:01 97.5 04/30/17 08:00 71 04/30/17 08:00 97.5 70 20 120/65 99 Room Air 04/30/17 04:00 97.5 72 20 120/64 98 Room Air 04/30/17 04:00 61 04/30/17 00:00 96.8 64 20 114/66 96 Room Air 04/30/17 00:00 71 04/29/17 20:02 80 123/50 04/29/17 20:00 97.2 73 20 121/65 99 Room Air 04/29/17 20:00 100 04/29/17 18:00 79 119/67 04/29/17 16:00 79 04/29/17 16:00 97.8 80 19 119/67 94 Room Air 04/29/17 14:22 76 117/59 Intake and Output 04/30/17 05/01/17 19:00 07:00 Intake Total 100 ml Output Total 500 ml Balance -400 ml IV Total 100 ml Output Urine Total 500 ml Laboratory Tests Test 04/30/17 07:10 White Blood Count 9.3 K/UL (4.8-10.8) Red Blood Count 4.10 M/UL (4.70-6.10) L Hemoglobin 12.2 G/DL (14.2-18.0) L Hematocrit 40.1 % (42.0-52.0) L Mean Corpuscular Volume 98 FL (80-99) Mean Corpuscular Hemoglobin 29.8 PG (27.0-31.0) Mean Corpuscular Hemoglobin Concent 30.5 G/DL (32.0-36.0) L Red Cell Distribution Width 13.9 % (11.6-14.8) Platelet Count 197 K/UL (150-450) Mean Platelet Volume 5.1 FL (6.5-10.1) L Neutrophils (%) (Auto) 75.1 % (45.0-75.0) H Lymphocytes (%) (Auto) 17.0 % (20.0-45.0) L Monocytes (%) (Auto) 7.7 % (1.0-10.0) Eosinophils (%) (Auto) 0.0 % (0.0-3.0) Basophils (%) (Auto) 0.2 % (0.0-2.0) Prothrombin Time 10.4 SEC (9.30-11.50) Prothromb Time International Ratio 1.0 (0.9-1.1) Activated Partial Thromboplast Time 22 SEC (23-33) L Sodium Level 140 MMOL/L (136-145) Potassium Level 4.3 MMOL/L (3.5-5.1) Chloride Level 105 MMOL/L (98-107) Carbon Dioxide Level 30 MMOL/L (21-32) Anion Gap 5 mmol/L (5-15) Blood Urea Nitrogen 6 mg/dL (7-18) L Creatinine 0.7 MG/DL (0.55-1.30) Estimat Glomerular Filtration Rate > 60 mL/min (>60) Glucose Level 95 MG/DL (74-106) Calcium Level 9.0 MG/DL (8.5-10.1) Magnesium Level 2.2 MG/DL (1.8-2.4) Lipase 65 U/L (73-393) L Height (Feet): 6 Height (Inches): 6.00 Weight (Pounds): 215 General Appearance: WD/WN, no apparent distress, alert Cardiovascular: normal rate Respiratory/Chest: normal breath sounds, no respiratory distress Abdominal Exam: normal bowel sounds, non tender, soft Extremities: non-tender Devika Hinojosa N.P. Apr 30, 2017 13:40
--- NOTE | 2017-04-30 14:05 | Diagnostic Imaging Report ---
Indication: chest pain Technique: The study was conducted under the supervision of a math instructor. lexiscan (regadenoson) infusion over 10 seconds followed by intravenous administration of 32.1 mCi of technetium 99m Myoview was performed. Three plane SPECT imaging of the heart was then performed. A resting study was performed as part of the one-day protocol with 10.2 mCi of technetium 99m myoview injected intravenously at that time. Three plane SPECT imaging of the heart was obtained. Comparison: None Clinical data: 1. Clinical response: Non ischemic 2. Electrocardiographic response: Non ischemic Findings: The myocardial perfusion scan demonstrates no fixed or reversible perfusion defects. Left jugular ejection fraction is 74%. Impression: Negative myocardial perfusion scan
[2017-04-30 16:00] VITALS: BP 129/61
[2017-04-30] MEDS: Eliquis 2.5mg tablet ORAL SCH (17:50)
[2017-04-30 20:00] VITALS: BP 108/60
[2017-04-30] MEDS: Sucralfate 1gm tab ORAL SCH (21:00)
[2017-05-01] VITALS: BP 106/59
[2017-05-01] MEDS: HYDROmorphone 1mg/ml Carpuject IVP PRN ×5 (00:46→17:38)
[2017-05-01] MEDS: DiphenhydrAMINE 50mg/ml Inj IVP PRN ×4 (02:33→21:35)
[2017-05-01] MEDS: D5 1/2NS 1,000 ML IV SCH ×2 (02:38→15:33)
[2017-05-01 04:00] VITALS: BP 116/62
[2017-05-01 07:58] LABS: BASOPHILS % (AUTO) 0.7 % (0.0-2.0); EOSINOPHILS % (AUTO) 0.6 % (0.0-3.0); LYMPHOCYTES % (AUTO) 29.3 % (20.0-45.0); MEAN CORPUSCULAR HEMOGLOBIN 31.5 PG (27.0-31.0); MEAN CORPUSCULAR HGB CONC 32.9 G/DL (32.0-36.0); MEAN CORPUSCULAR VOLUME 96 FL (80-99); MEAN PLATELET VOLUME 5.3 FL (6.5-10.1); MONOCYTES % (AUTO) 11.4 % (1.0-10.0); PLATELET COUNT 199 K/UL (150-450); RED BLOOD COUNT 3.91 M/UL (4.70-6.10); RED CELL DISTRIBUTION WIDTH 13.8 % (11.6-14.8); WHITE BLOOD COUNT 5.5 K/UL (4.8-10.8)
[2017-05-01 08:00] VITALS: BP 111/65
[2017-05-01 08:08] LABS: ANION GAP 5 mmol/L (5-15); CALCIUM 8.3 MG/DL (8.5-10.1); CARBON DIOXIDE 30 MMOL/L (21-32); CHLORIDE 106 MMOL/L (98-107); CREATININE 0.8 MG/DL (0.55-1.30); GLOMERULAR FILTRATION RATE > 60 mL/min (>60); POTASSIUM 4.2 MMOL/L (3.5-5.1); SODIUM 141 MMOL/L (136-145)
--- NOTE | 2017-05-01 08:11 | Pulmonology Progress Note ---
Assessment/Plan Problems: (1) ACS (acute coronary syndrome) (2) UGIB (upper gastrointestinal bleed) (3) Marfan syndrome (4) Cardiac defibrillator in situ (5) Stented coronary artery Assessment/Plan nuclear test is negative asymptomatic feeling better. dc home d/w PMD Subjective ROS Limited/Unobtainable: No Constitutional: Reports: no symptoms HEENT: Repors: no symptoms Allergies: Coded Allergies: AVOCADO (Verified Allergy, Unknown, 04/28/17) BANANA (Verified Allergy, Unknown, 04/28/17) KETOROLAC (Verified Allergy, Unknown, 04/28/17) Kiwi (Verified Allergy, Unknown, 04/28/17) LATEX, NATURAL RUBBER (Verified Allergy, Unknown, 04/28/17) MORPHINE (Verified Allergy, Unknown, 04/28/17) ONION (Verified Allergy, Unknown, 04/28/17) PROMETHAZINE (Verified Allergy, Unknown, 04/28/17) PROPOFOL (Verified Allergy, Unknown, 04/28/17) Uncoded Allergies: IODINATED CONTRAST (Allergy, Unknown, 04/28/17) Objective Last 24 Hour Vital Signs Date Time Temp Pulse Resp B/P (MAP) Pulse Ox O2 Delivery O2 Flow Rate FiO2 05/01/17 05:15 97.1 05/01/17 05:05 66 05/01/17 04:00 97.1 62 20 116/62 97 Room Air 05/01/17 02:03 65 05/01/17 00:00 67 05/01/17 00:00 98 05/01/17 00:00 97.0 85 20 106/59 95 Room Air 04/30/17 20:00 97.3 68 20 108/60 99 Room Air 04/30/17 20:00 65 04/30/17 17:48 64 129/61 04/30/17 17:48 64 129/61 04/30/17 16:00 98.2 74 20 129/61 99 Room Air 04/30/17 16:00 73 04/30/17 12:00 65 04/30/17 12:00 97.5 74 20 105/65 99 Room Air General Appearance: WD/WN HEENT: normocephalic, anicteric Respiratory/Chest: chest wall non-tender, lungs clear Cardiovascular: normal peripheral pulses, regular rhythm Abdomen: normal bowel sounds, soft, non tender Genitourinary: normal external genitalia Skin: no rash Microbiology Date/Time Source Procedure Growth Status 04/28/17 20:00 Nasal Nares Right MRSA Culture - Final NO METHICILLIN RESISTANT STAPH AUREUS... Complete 04/28/17 20:00 Rectum VRE Culture - Final Enterococcus Faecium - Vre Complete Laboratory Tests 05/01/17 07:25: White Blood Count 5.5, Red Blood Count 3.91L, Hemoglobin 12.3L, Hematocrit 37.4L , Mean Corpuscular Volume 96, Mean Corpuscular Hemoglobin 31.5H, Mean Corpuscular Hemoglobin Concent 32.9, Red Cell Distribution Width 13.8, Platelet Count 199, Mean Platelet Volume 5.3L, Neutrophils (%) (Auto) 58.0, Lymphocytes ( %) (Auto) 29.3, Monocytes (%) (Auto) 11.4H, Eosinophils (%) (Auto) 0.6, Basophils (%) (Auto) 0.7, Sodium Level 141, Potassium Level 4.2, Chloride Level 106, Carbon Dioxide Level 30, Anion Gap 5, Blood Urea Nitrogen 10, Creatinine 0.8, Estimat Glomerular Filtration Rate > 60, Glucose Level 72L, Calcium Level 8.3L Current Medications Medications (Trade) Dose Ordered Sig/Nichelle Route PRN Reason Start Time Stop Time Status Last Admin Dose Admin Acetaminophen (Tylenol) 650 mg Q4H PRN ORAL Mild Pain (Pain Scale 1-3) 04/28/17 16:45 05/28/17 16:44 Al Hydroxide/Mg Hydroxide (Mylanta II) 30 ml Q6H PRN ORAL dyspepsia 04/28/17 16:45 05/28/17 16:44 Apixaban (Eliquis) 5 mg BID ORAL 04/30/17 18:00 05/30/17 17:59 04/30/17 17:50 Atorvastatin Calcium (Lipitor) 10 mg QHS ORAL 04/28/17 22:00 05/28/17 21:59 04/30/17 21:30 Carvedilol (Coreg) 6.25 mg BID ORAL 04/28/17 22:00 05/28/17 21:59 04/30/17 17:48 Dextrose (Dextrose 50%) STAT PRN IV Hypoglycemia 04/28/17 16:45 05/28/17 16:44 Dextrose/Sodium Chloride 1,000 ml @ 100 mls/hr Q10H IV 04/28/17 17:00 05/28/17 16:59 05/01/17 02:38 Digoxin (Lanoxin) 0.125 mg DAILY ORAL 04/29/17 09:00 05/29/17 08:59 04/29/17 09:45 Diphenhydramine HCl (Benadryl) 25 mg Q6H PRN ORAL Itching/Pruritis 04/28/17 16:45 05/28/17 16:44 04/29/17 00:59 Diphenhydramine HCl (Benadryl) 50 mg Q6H PRN IVP Itching 04/29/17 18:30 05/29/17 18:29 05/01/17 02:33 Docusate Sodium (Colace) 100 mg EVERY 12 HOURS ORAL 04/28/17 21:00 05/28/17 20:59 04/30/17 21:00 Ferrous Sulfate (Feosol) 325 mg THREE TIMES A DAY ORAL 04/29/17 09:00 05/29/17 08:59 04/30/17 17:47 Gabapentin (Neurontin) 300 mg THREE TIMES A DAY ORAL 04/29/17 09:00 05/29/17 08:59 04/30/17 17:48 Hydromorphone HCl (Dilaudid) 1 mg Q4H PRN IVP For Severe Pain 04/28/17 21:15 05/05/17 21:14 05/01/17 04:46 Isosorbide Mononitrate (Imdur) 30 mg DAILY ORAL 04/30/17 09:00 05/30/17 08:59 Nitroglycerin (Ntg) 0.4 mg Q5M PRN SL Prn Chest Pain 04/28/17 16:45 05/28/17 16:44 Ondansetron HCl (Zofran) 4 mg Q6H PRN IVP Nausea & Vomiting 04/28/17 16:45 05/28/17 16:44 04/29/17 11:51 Pantoprazole (Protonix) 40 mg DAILY ORAL 04/29/17 09:00 05/29/17 08:59 04/29/17 09:43 Polyethylene Glycol (Miralax) 17 gm DAILYPRN PRN ORAL Constipation 04/28/17 16:45 05/28/17 16:44 Potassium Chloride (K-Dur) 40 meq TWICE A DAY ORAL 04/29/17 09:00 05/29/17 08:59 04/30/17 17:49 Sertraline HCl (Zoloft) 50 mg DAILY ORAL 04/29/17 09:00 05/29/17 08:59 04/29/17 09:39 Sotalol HCl (Betapace) 80 mg BID ORAL 04/29/17 13:30 05/29/17 13:29 04/30/17 17:48 Sucralfate (Carafate) 1 gm BEDTIME ORAL 04/28/17 22:30 05/28/17 22:29 04/30/17 21:00 Tramadol HCl (Ultram) 50 mg Q6H PRN ORAL For Moderate Pain 04/28/17 21:15 05/05/17 21:14 Zolpidem Tartrate (Ambien) 5 mg BEDTIME PRN ORAL Insomnia 04/28/17 21:30 05/05/17 21:29 EUNICE GARCIA May 01, 2017 08:11
[2017-05-01] MEDS: Carvedilol 6.25mg Tab ORAL SCH ×2 (09:09→17:07)
[2017-05-01] MEDS: Digoxin 0.125mg tab ORAL SCH (09:10)
[2017-05-01] MEDS: Sotalol 80mg tab ORAL SCH ×2 (09:10→17:07)
[2017-05-01] MEDS: Docusate 100mg cap ORAL SCH ×2 (09:10→21:48)
[2017-05-01] MEDS: Eliquis 2.5mg tablet ORAL SCH ×2 (09:11→17:07)
[2017-05-01] MEDS: Sertraline 50mg tab ORAL SCH (09:12)
[2017-05-01] MEDS: Imdur 30mg tab ORAL SCH (09:12)
--- NOTE | 2017-05-01 11:02 | General Progress Note ---
Assessment/Plan Assessment/Plan 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 history of EV patient has pacemaker EGD cancelled yesterday due to stress test, will defer procedure to outpatient given no recurrent vomiting and stable H&H. OB stool r/o GI bleed can resume eliquis per cardiology monitor H&H, prn transfusions bowel regime ppi fu labs, lipase dc planning Subjective ROS Limited/Unobtainable: Yes Allergies: Coded Allergies: AVOCADO (Verified Allergy, Unknown, 04/28/17) BANANA (Verified Allergy, Unknown, 04/28/17) KETOROLAC (Verified Allergy, Unknown, 04/28/17) Kiwi (Verified Allergy, Unknown, 04/28/17) LATEX, NATURAL RUBBER (Verified Allergy, Unknown, 04/28/17) MORPHINE (Verified Allergy, Unknown, 04/28/17) ONION (Verified Allergy, Unknown, 04/28/17) PROMETHAZINE (Verified Allergy, Unknown, 04/28/17) PROPOFOL (Verified Allergy, Unknown, 04/28/17) Uncoded Allergies: IODINATED CONTRAST (Allergy, Unknown, 04/28/17) Subjective no event Objective Last 24 Hour Vital Signs Date Time Temp Pulse Resp B/P (MAP) Pulse Ox O2 Delivery O2 Flow Rate FiO2 05/01/17 09:12 111/65 05/01/17 09:10 62 111/65 05/01/17 09:10 62 05/01/17 09:09 62 111/65 05/01/17 08:05 71 05/01/17 08:00 97.7 62 18 111/65 100 Room Air 05/01/17 05:15 97.1 05/01/17 05:05 66 05/01/17 04:00 97.1 62 20 116/62 97 Room Air 05/01/17 02:03 65 05/01/17 00:00 67 05/01/17 00:00 98 05/01/17 00:00 97.0 85 20 106/59 95 Room Air 04/30/17 20:00 97.3 68 20 108/60 99 Room Air 04/30/17 20:00 65 04/30/17 17:48 64 129/61 04/30/17 17:48 64 129/61 04/30/17 16:00 98.2 74 20 129/61 99 Room Air 04/30/17 16:00 73 04/30/17 12:00 65 04/30/17 12:00 97.5 74 20 105/65 99 Room Air Intake and Output 05/01/17 05/02/17 19:00 07:00 Intake Total 360 ml Output Total 500 ml Balance -140 ml Intake Oral 360 ml Output Urine Total 500 ml Laboratory Tests 05/01/17 07:25: White Blood Count 5.5, Red Blood Count 3.91L, Hemoglobin 12.3L, Hematocrit 37.4L , Mean Corpuscular Volume 96, Mean Corpuscular Hemoglobin 31.5H, Mean Corpuscular Hemoglobin Concent 32.9, Red Cell Distribution Width 13.8, Platelet Count 199, Mean Platelet Volume 5.3L, Neutrophils (%) (Auto) 58.0, Lymphocytes ( %) (Auto) 29.3, Monocytes (%) (Auto) 11.4H, Eosinophils (%) (Auto) 0.6, Basophils (%) (Auto) 0.7, Sodium Level 141, Potassium Level 4.2, Chloride Level 106, Carbon Dioxide Level 30, Anion Gap 5, Blood Urea Nitrogen 10, Creatinine 0.8, Estimat Glomerular Filtration Rate > 60, Glucose Level 72L, Calcium Level 8.3L Height (Feet): 6 Height (Inches): 6.00 Weight (Pounds): 215 General Appearance: alert EENT: normal ENT inspection Neck: supple Cardiovascular: normal rate Abdomen: normal bowel sounds, non tender, soft Extremities: non-tender JAGUAR LORENZO May 01, 2017 11:02
[2017-05-01 12:00] VITALS: BP 110/62
--- NOTE | 2017-05-01 13:22 | Cardiac Electrophysiology PN ---
Assessment/Plan Assessment/Plan 1. Chest pain. Ruled out for myocardial infarction. Likely secondary to vomiting from a gastrointestinal source. Echocardiogram showed EF 65%. His EKG suggestive of inferolateral ischemia, however, no prior EKG is available. Adenosine Cardiolite showed no ischemia or scar. 2. History of cardiomyopathy. EF Nl. The patient is on digoxin, Coreg, Aldactone , as well as sotalol. 3. Paroxysmal atrial fibrillation. In SR on Sotalol 80 mg b.i.d.,digoxin and Coreg. Eliquis resumed. 4. Recurrent gastrointestinal bleed. No further bleed. GI followoing and Eliquis resumed. 5. History of Marfan syndrome. The patient will be monitored for aortic aneurysm. 6. History of port placement for lack of intravenous access. 7. History of pulmonary hypertension. 8. History of cerebrovascular accident in 2007. ROAL RN OK to DC Subjective Subjective Feeling better. I Had nuclear stress test yesterday.No arrhythmias on tele. Objective Last 24 Hour Vital Signs Date Time Temp Pulse Resp B/P (MAP) Pulse Ox O2 Delivery O2 Flow Rate FiO2 05/01/17 12:00 97.5 79 18 110/62 100 Room Air 05/01/17 11:53 62 05/01/17 09:12 111/65 05/01/17 09:10 62 111/65 05/01/17 09:10 62 05/01/17 09:09 62 111/65 05/01/17 08:05 71 05/01/17 08:00 97.7 62 18 111/65 100 Room Air 05/01/17 05:15 97.1 05/01/17 05:05 66 05/01/17 04:00 97.1 62 20 116/62 97 Room Air 05/01/17 02:03 65 05/01/17 00:00 67 05/01/17 00:00 98 05/01/17 00:00 97.0 85 20 106/59 95 Room Air 04/30/17 20:00 97.3 68 20 108/60 99 Room Air 04/30/17 20:00 65 04/30/17 17:48 64 129/61 04/30/17 17:48 64 129/61 04/30/17 16:00 98.2 74 20 129/61 99 Room Air 04/30/17 16:00 73 Intake and Output 05/01/17 05/02/17 19:00 07:00 Intake Total 1220 ml Output Total 1200 ml Balance 20 ml Intake Oral 720 ml IV Total 500 ml Output Urine Total 1200 ml Laboratory Tests Test 05/01/17 07:25 White Blood Count 5.5 K/UL (4.8-10.8) Red Blood Count 3.91 M/UL (4.70-6.10) L Hemoglobin 12.3 G/DL (14.2-18.0) L Hematocrit 37.4 % (42.0-52.0) L Mean Corpuscular Volume 96 FL (80-99) Mean Corpuscular Hemoglobin 31.5 PG (27.0-31.0) H Mean Corpuscular Hemoglobin Concent 32.9 G/DL (32.0-36.0) Red Cell Distribution Width 13.8 % (11.6-14.8) Platelet Count 199 K/UL (150-450) Mean Platelet Volume 5.3 FL (6.5-10.1) L Neutrophils (%) (Auto) 58.0 % (45.0-75.0) Lymphocytes (%) (Auto) 29.3 % (20.0-45.0) Monocytes (%) (Auto) 11.4 % (1.0-10.0) H Eosinophils (%) (Auto) 0.6 % (0.0-3.0) Basophils (%) (Auto) 0.7 % (0.0-2.0) Sodium Level 141 MMOL/L (136-145) Potassium Level 4.2 MMOL/L (3.5-5.1) Chloride Level 106 MMOL/L (98-107) Carbon Dioxide Level 30 MMOL/L (21-32) Anion Gap 5 mmol/L (5-15) Blood Urea Nitrogen 10 mg/dL (7-18) Creatinine 0.8 MG/DL (0.55-1.30) Estimat Glomerular Filtration Rate > 60 mL/min (>60) Glucose Level 72 MG/DL (74-106) L Calcium Level 8.3 MG/DL (8.5-10.1) L Microbiology Date/Time Source Procedure Growth Status 04/28/17 20:00 Nasal Nares Right MRSA Culture - Final NO METHICILLIN RESISTANT STAPH AUREUS... Complete 04/28/17 20:00 Rectum VRE Culture - Final Enterococcus Faecium - Vre Complete Objective HEAD AND NECK: No JVD. LUNGS: Clear. CARDIOVASCULAR: Regular S1 and S2 with no gallop or rub. ICD is in the left subclavian. ABDOMEN: Soft. EXTREMITIES: No pitting edema. CORWIN BELLAMY May 01, 2017 13:22
[2017-05-01] MEDS ORDERED: Tubing IV Secondary IV ONE (16:05)
[2017-05-01 16:46] VITALS: BP 112/70
[2017-05-01 20:00] VITALS: BP 108/70
[2017-05-01] MEDS ORDERED: D5 1/2NS 1000ml IV ONE (21:47)
[2017-05-01] MEDS: Sucralfate 1gm tab ORAL SCH (21:48)
--- NOTE | 2017-05-02 23:20 | Discharge Summary ---
Discharge Summary Hospital Course Date of Admission Apr 28, 2017 at 18:24 Date of Discharge May 01, 2017 at 21:48 Admitting Diagnosis CHEST PAIN Reason for Hospitalization: r/o ACS, upper GI bleed HPI 31y/o male with pmh of Marfan's syndrome (per pt dx 2013), VF/VT s/p ICD, h/o in 2011 per pt, Afib (on eliquis), CVA w/ residual L sided weakness, ASD s/p closure, spontaneous pneumothorax in 2013, HTN, HLD, 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 who presents with chest pain, abd pain and hematemesis. Pt states around 8AM he had episode of emesis w/ blood breaks and then 9AM he had coffee- ground emesis. He also c/o chest pain and abd pain which started today w/ intermittent episodes. Chest pain is 10/10 substernal sharp/tearing sensation radiation to upper back. C/o nausea, some SOB, but no f/c, d/c, dysuria. Denies melena, BRBPR, hematochezia. Pt lives in [place] and normally goes to [place] for medical care, but is visit [facility] at this time. In ED, hgb 14. Trop neg. CT angio chest ordered but pt w/ iodine allergy so received solumedrol and benadryl w/ plan for CT in 24h. Pt admitted to obs. Underwent CT angio chest which showed no e/o PE or dissection. Hgb slightly downtrending. GI consulted w/ plan for EGD tomorrow. Eliquis on hold. Consultations Cardiology, Pulmonology, Gastroenterology Hospital Course Pt was admitted and ruled out for ACS with serial trop and EKG. TTE showed normal EF. CT angio chest showed no e/o PE or aortic dissection. Pt underwent nuclear stress test which was unremarkable. Pt was treated for PPI given hematemesis, concern for upper GI bleed. Pt's hemoglobin dropped only slightly and he did not require any transfusion. Pt was seen by GI w/ plan for EGD but it was later canceled as pt remained stable w/o episodes of bleeding. Pt was resumed on Eliquis (OK per GI). Pt is to follow-up outpatient for possible repeat EGD. Discharge Medications Continued Medications: Apixaban (Eliquis) 5 Mg Tablet 5 MG PO BID, TAB Atorvastatin Calcium* (Lipitor*) 10 Mg Tablet 10 MG ORAL DAILY, #30 TAB 0 Refills Carvedilol* (Carvedilol*) 6.25 Mg Tablet 6.25 MG ORAL BID, TAB Digoxin* (Digoxin*) 125 Mcg Tablet 125 MCG ORAL DAILY, TAB Ferrous Sulfate* (Ferrous Sulfate*) 325 Mg Tablet 325 MG ORAL THREE TIMES A DAY, #90 TAB 0 Refills Gabapentin* (Gabapentin*) 300 Mg Capsule 300 MG ORAL THREE TIMES A DAY, CAP 0 Refills Hydromorphone HCl (Dilaudid) 2 Mg Tablet 2 MG ORAL Q4H, #20 TAB 0 Refills Isosorbide Mononitrate (Isosorbide Mononitrate Er) 60 Mg Tab.er.24h 60 MG PO DAILY, TAB Pantoprazole* (Pantoprazole*) 40 Mg Tablet.dr 40 MG ORAL DAILY, TAB Potassium Chloride* (K-Dur*) 20 Meq Tab.er.prt 40 MEQ ORAL TWICE A DAY, #14 TAB 0 Refills Sertraline Hcl* (Zoloft*) 50 Mg Tablet 50 MG ORAL DAILY, TAB Sotalol HCl (Sotalol) 80 Mg Tablet 80 MG PO BID, TAB Spironolact/Hydrochlorothiazid (Spironolactone-Hctz 25-25 Tab) 1 Each Tablet 1 TAB ORAL DAILY, TAB Sucralfate* (Carafate*) 1 Gm Tablet 1 GM ORAL BEDTIME, TAB Tramadol Hcl* (Ultram*) 50 Mg Tablet 50 MG ORAL Q6H PRN for For Pain, #30 TAB 0 Refills Zolpidem Tartrate* (Zolpidem Tartrate*) 10 Mg Tablet 10 MG ORAL BEDTIME PRN for Insomnia, TAB 0 Refills Discharge Condition Upon Discharge: stable Discharge Disposition Patient was discharged to Home (01) Discharge Diagnoses: (1) Spontaneous pneumothorax (2) Atypical chest pain (3) Pulmonary hypertension (4) H/o [place] in 2011 (5) ASD s/p closure (6) VF/VT s/p ICD (7) H/o CVA w/ residual L sided weakness (8) Acute upper GI bleed (9) H/o spontaneous pneumothorax (10) 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 (11) Paroxysmal A-fib (12) Marfan syndrome (13) Elevated lipase Wandy Uribe M.D. May 02, 2017 23:20
--- NOTE | 2017-05-09 16:29 | Cardiology Report ---
APPROVED REPORT EKG Measurement Heart [id number] ID [id number] Atrial pacing T wave abnormality, consider inferior ischemia T wave abnormality, consider anterolateral ischemia Abnormal ECG
--- NOTE | 2017-05-10 10:45 | Cardiology Report ---
APPROVED REPORT EXAM: Two-dimensional and M-mode echocardiogram with Doppler and color Doppler. INDICATION Chest Pain M-Mode DIMENSIONS IVSd1.0 (0.7-1.1cm)Left Atrium (MM)2.9 (1.6-4.0cm) LVDd5.7 (3.5-5.6cm)Aortic Root3.7 (2.0-3.7cm) PWd1.3 (0.7-1.1cm)Aortic Cusp Exc.1.9 (1.5-2.0cm) LVDs4.2 (2.5-4.0cm) PWs2.3 cm Normal left ventricular chamber size, systolic function and wall motion. Left ventricular ejection fraction estimated to be 60-65 %. No evidence of left ventricular hypertrophy. No evidence of pericardial effusion.. Mild bi-atrial enlargement. Mild right ventricular enlargement. Pulmonic valve not well visualized. Normal tricuspid valve structure. IVC at normal size with physiologic collapse. Pacemaker wire present in the right side chambers. A color flow and spectral Doppler study was performed and revealed: No aortic regurgitation. Mild mitral regurgitation. Mitral diastolic velocities suggests normal diastolic function. Mild tricuspid regurgitation. Tricuspid systolic velocities suggests peak right ventricular systolic pressure of 50 mmHg, consistent with moderate pulmonary hypertension. No pulmonic regurgitation present.
== END 2017-05-01 21:48 | disposition home or self-care (01) | DRG 253 ==
LOC: EMR 12:33 → INTOOBSV 14:40 → 2E 14:40 → EDBEDREQ 17:38 → OBSVTOIN 18:24 → 2E 04-30 16:47
DX: K92.2 Gastrointestinal hemorrhage, unspecified (principal); Q87.40 Marfan syndrome, unspecified; I27.20 Pulmonary hypertension, unspecified; I25.10 Atherosclerotic heart disease of native coronary artery without angina pectoris; I69.354 Hemiplegia and hemiparesis following cerebral infarction affecting left non-dominant side; I10 Essential (primary) hypertension; E78.5 Hyperlipidemia, unspecified; I25.2 Old myocardial infarction; I48.0 Paroxysmal atrial fibrillation; R07.89 Other chest pain; Z98.61 Coronary angioplasty status; Z91.041 Radiographic dye allergy status; Z79.01 Long term (current) use of anticoagulants; Z95.810 Presence of automatic (implantable) cardiac defibrillator
CPT/HCPCS: 36415; 71010; 71275; 78452; 80048; 80053; 80061; 80162; 81003; 82550; 82553; 83036; 83690; 83735; 84484; 85025; 85379; 85610; 85730; 86850; 86900; 86901; 87081; 93005; 93017; 93306; 96360; 96361; 96374; 96375; 96376; 99285; J2405; J2785; J8499

== ENCOUNTER 2017-06-19 11:11 | Observation (INO) | payer MEDICAID ==
[~2017-06-19] VITALS: Ht 198.1 cm; Wt 99.8 kg
[2017-06-19] VITALS: BP 119/71
[~2017-06-19 11:11] MED LIST: CARAFATE1 G1 ORAL; CARVEDILOL6.25 MG ORAL; DIGOXIN125 MCG ORAL; DILAUDID2 MG ORAL; ELIQUIS5 MG PO; FERROUS SULFAT325 MG ORAL; GABAPENTIN300 MG ORAL; ISOSORBIDE MONO60 M1 PO; LIPITOR10 MG ORAL; PANTOPRAZOLE SO40 MG ORAL; POTASSIUM CHLO20 ME1 ORAL; SERTRALINE HCL50 MG ORAL; SOTALOL PO; SPIRONOLACTONE1 EACH ORAL; TRAMADOL HCL50 MG ORAL; ZOLPIDEM TARTRA10 MG ORAL
[2017-06-19 11:25] VITALS: BP 140/75
[2017-06-19] MEDS ORDERED: Haloperidol 5mg/ml Inj IM ONE (11:30)
[2017-06-19 12:20] LABS: APPEARANCE,URINE CLEAR; BILIRUBIN, URINE NEGATIVE (NEGATIVE); GLUCOSE, URINE (UA) NEGATIVE (NEGATIVE); KETONES,URINE NEGATIVE (NEGATIVE); LEUKOCYTE ESTERASE ,URINE 1+ (NEGATIVE); NITRITE,URINE NEGATIVE (NEGATIVE); PH,URINE 6.5 (4.5-8.0); PROTEIN,URINE 1+ (NEGATIVE); UROBILINOGEN,URINE 1 MG/DL (0.0-1.0)
[2017-06-19 12:27] LABS: BASOPHILS % (AUTO) 0.6 % (0.0-2.0); EOSINOPHILS % (AUTO) 0.7 % (0.0-3.0); HEMATOCRIT 42.6 % (42.0-52.0); HEMOGLOBIN 13.8 G/DL (14.2-18.0); LYMPHOCYTES % (AUTO) 25.1 % (20.0-45.0); MEAN CORPUSCULAR VOLUME 93 FL (80-99); MONOCYTES % (AUTO) 8.8 % (1.0-10.0); NEUTROPHILS % (AUTO) 64.9 % (45.0-75.0); PLATELET COUNT 236 K/UL (150-450); RED BLOOD COUNT 4.56 M/UL (4.70-6.10); WHITE BLOOD COUNT 5.6 K/UL (4.8-10.8)
[2017-06-19 12:35] LABS: ANION GAP 10 mmol/L (5-15); BLOOD UREA NITROGEN 9 mg/dL (7-18); CALCIUM 8.4 MG/DL (8.5-10.1); CARBON DIOXIDE 26 MMOL/L (21-32); CHLORIDE 105 MMOL/L (98-107); CREATININE 0.6 MG/DL (0.55-1.30); POTASSIUM 3.9 MMOL/L (3.5-5.1); SODIUM 141 MMOL/L (136-145)
--- NOTE | 2017-06-19 12:36 | Emergency Room Report ---
History of Present Illness General Chief Complaint: Abdominal Pain Source: Patient Present Illness HPI Patient is a 31-year-old male reports having increased hematemesis. The patient reports having multiple episodes of bright red blood. He states that he had previous history of a recent EGD and was diagnosed with esophageal varices. Patient had reportedly been vomiting multiple times. He denies any bloody stool. He reports taking oral anticoagulation for atrial fibrillation. He states that he is also on digoxin. The patient reports having prior shoulder surgery he denies any aortic valve surgery or history dissection. Patient had a negative CTA approximately one month ago. Allergies: Coded Allergies: AVOCADO (Verified Allergy, Unknown, 04/28/17) BANANA (Verified Allergy, Unknown, 04/28/17) KETOROLAC (Verified Allergy, Unknown, 04/28/17) Kiwi (Verified Allergy, Unknown, 04/28/17) LATEX, NATURAL RUBBER (Verified Allergy, Unknown, 04/28/17) MORPHINE (Verified Allergy, Unknown, 04/28/17) ONION (Verified Allergy, Unknown, 04/28/17) PROMETHAZINE (Verified Allergy, Unknown, 04/28/17) PROPOFOL (Verified Allergy, Unknown, 04/28/17) Uncoded Allergies: IODINATED CONTRAST (Allergy, Unknown, 04/28/17) Patient History Past Medical History: see triage record Reviewed Nursing Documentation: PMH: Agreed, PSxH: Agreed Nursing Documentation-PMH Past Medical History: No History, Except For Hx Cardiac Problems: Yes - A-Fib, SVT, 2012-Infarct Hx Hypertension: Yes - Pulmonary Hypertension Hx Pacemaker: Yes - Biotronik pacemaker Hx Cancer: No Hx Gastrointestinal Problems: Yes Hx Neurological Problems: Yes - marfan syndrome Hx Cerebrovascular Accident: Yes - 2007, 2017 Hx Transient Ischemic Attacks: Yes Review of Systems All Other Systems: negative except mentioned in HPI Physical Exam Vital Signs Date Time Temp Pulse Resp B/P (MAP) Pulse Ox O2 Delivery O2 Flow Rate FiO2 06/19/17 11:13 97.9 90 18 148/78 99 Room Air Sp02 EP Interpretation: reviewed, normal General Appearance: normal inspection, well appearing, no apparent distress, alert, GCS 15, obese Head: atraumatic ENT: normal ENT inspection, hearing grossly normal, normal voice Neck: normal inspection, full range of motion, supple, no bony tend Respiratory: normal inspection, lungs clear, normal breath sounds, no respiratory distress, no retraction, no wheezing Cardiovascular #1: regular rate, rhythm, no edema Gastrointestinal: normal inspection, normal bowel sounds, non tender, soft, no guarding, no hernia Genitourinary: no CVA tenderness Musculoskeletal: normal inspection, back normal, normal range of motion Neurologic: normal inspection, alert, oriented x3, responsive, static balancer III-XII nml as tested, motor strength/tone normal, speech normal Psychiatric: normal inspection, judgement/insight normal, mood/affect normal Skin: normal inspection, normal color, no rash Medical Decision Making Diagnostic Impression: Primary Impression: Acute upper GI bleed Additional Impression: Marfan syndrome ER Course Patient presented for abdominal pain. Differential diagnoses included esophageal varices, malingering, ischemic bowel, appendicitis, perforated viscus , abdominal aortic aneurysm, inferior myocardial infarction, viral gastroenteritis Because of complexity of patient's case laboratory testing and imaging studies were ordered. The patient presented with stable vital signs. Given IV Pepcid. The patient was given Haldol for nausea and abdominal pain. Laboratory studies showed normal hemoglobin. The patient reportedly had a normal CTA on previous visit. Dr. Aleksandr Suárez was contacted for inpatient observation. Labs Test 06/19/17 11:47 06/19/17 11:51 06/19/17 12:45 White Blood Count 5.6 K/UL (4.8-10.8) Red Blood Count 4.56 M/UL (4.70-6.10) Hemoglobin 13.8 G/DL (14.2-18.0) Hematocrit 42.6 % (42.0-52.0) Mean Corpuscular Volume 93 FL (80-99) Mean Corpuscular Hemoglobin 30.2 PG (27.0-31.0) Mean Corpuscular Hemoglobin Concent 32.4 G/DL (32.0-36.0) Red Cell Distribution Width 13.0 % (11.6-14.8) Platelet Count 236 K/UL (150-450) Mean Platelet Volume 5.6 FL (6.5-10.1) Neutrophils (%) (Auto) 64.9 % (45.0-75.0) Lymphocytes (%) (Auto) 25.1 % (20.0-45.0) Monocytes (%) (Auto) 8.8 % (1.0-10.0) Eosinophils (%) (Auto) 0.7 % (0.0-3.0) Basophils (%) (Auto) 0.6 % (0.0-2.0) Sodium Level 141 MMOL/L (136-145) Potassium Level 3.9 MMOL/L (3.5-5.1) Chloride Level 105 MMOL/L (98-107) Carbon Dioxide Level 26 MMOL/L (21-32) Anion Gap 10 mmol/L (5-15) Blood Urea Nitrogen 9 mg/dL (7-18) Creatinine 0.6 MG/DL (0.55-1.30) Estimat Glomerular Filtration Rate > 60 mL/min (>60) Glucose Level 89 MG/DL (74-106) Calcium Level 8.4 MG/DL (8.5-10.1) Total Bilirubin 0.5 MG/DL (0.2-1.0) Aspartate Amino Transf (AST/SGOT) 20 U/L (15-37) Alanine Aminotransferase (ALT/SGPT) 26 U/L (12-78) Alkaline Phosphatase 66 U/L (46-116) Troponin I 0.000 ng/mL (0.000-0.056) Total Protein 7.1 G/DL (6.4-8.2) Albumin 4.0 G/DL (3.4-5.0) Globulin 3.1 g/dL Albumin/Globulin Ratio 1.3 (1.0-2.7) Lipase 90 U/L (73-393) Digoxin Level < 0.2 NG/ML (0.5-2.0) Urine Color Yellow Urine Appearance Clear Urine pH 6.5 (4.5-8.0) Urine Specific [place] 1.015 (1.005-1.035) Urine Protein 1+ (NEGATIVE) Urine Glucose (UA) Negative (NEGATIVE) Urine Ketones Negative (NEGATIVE) Urine Occult Blood 3+ (NEGATIVE) Urine Nitrite Negative (NEGATIVE) Urine Bilirubin Negative (NEGATIVE) Urine Urobilinogen 1 MG/DL (0.0-1.0) Urine Leukocyte Esterase 1+ (NEGATIVE) Urine RBC 10-15 /HPF (0 - 0) Urine WBC 2-4 /HPF (0 - 0) Urine Squamous Epithelial Cells Occasional /LPF Urine Bacteria Few /HPF (NONE) Urine Mucus Moderate /LPF (NONE/OCC) Urine Opiates Screen Negative (NEGATIVE) Urine Barbiturates Screen Negative (NEGATIVE) Phencyclidine (PCP) Screen Negative (NEGATIVE) Urine Amphetamines Screen Negative (NEGATIVE) Urine Benzodiazepines Screen Negative (NEGATIVE) Urine Cocaine Screen Negative (NEGATIVE) Urine Marijuana (THC) Screen Negative (NEGATIVE) Prothrombin Time 11.0 SEC (9.30-11.50) Prothromb Time International Ratio 1.1 (0.9-1.1) Activated Partial Thromboplast Time 28 SEC (23-33) EKG Diagnostic Results Rate: normal - 76 Rhythm: other - paced Rhythm Strip Diag. Results EP Interpretation: yes Rhythm: no PVC's, no ectopy Last Vital Signs Date Time Temp Pulse Resp B/P (MAP) Pulse Ox O2 Delivery O2 Flow Rate FiO2 06/19/17 11:13 97.9 90 18 148/78 99 Room Air Status: unchanged Disposition: PLACE IN OBSERVATION Condition: Serious Referrals: BRIANA LEBLANC (PCP) Yony العلي Jun 19, 2017 12:36
[2017-06-19] MEDS ORDERED: SENNA8.6 M2 PO (12:37)
[2017-06-19] MEDS ORDERED: ASPIR 8181 MG ORAL (12:37)
[2017-06-19] MEDS ORDERED: NITROGLYCERIN0.4 MG SL (12:37)
[2017-06-19 12:42] LABS: COLOR,URINE YELLOW
[2017-06-19 12:49] LABS: ALANINE AMINOTRANSFERASE 26 U/L (12-78); ALBUMIN/GLOBULIN RATIO 1.3 (1.0-2.7); ALKALINE PHOSPHATASE 66 U/L (46-116); ASPARTATE AMINO TRANSFERASE 20 U/L (15-37); BILIRUBIN,TOTAL 0.5 MG/DL (0.2-1.0)
[2017-06-19 12:56] VITALS: BP 126/57
[2017-06-19 13:13] LABS: INR 1.1 (0.9-1.1)
[2017-06-19 14:58] VITALS: BP 115/60
[2017-06-19 15:47] VITALS: BP 124/70
[2017-06-19] MEDS ORDERED: Nitroglycerin Subl 0.4mg tab SL PRN (17:30)
[2017-06-19] MEDS ORDERED: Zolpidem 5mg tab ORAL PRN (17:30)
[2017-06-19] MEDS ORDERED: Sennosides 8.6mg ORAL PRN (17:30)
[2017-06-19 20:16] VITALS: BP 127/76
[2017-06-19] MEDS: Sotalol 80mg tab ORAL SCH (20:43)
[2017-06-19] MEDS: Carvedilol 6.25mg Tab ORAL SCH (20:43)
[2017-06-19] MEDS ORDERED: Sucralfate 1gm tab ORAL SCH (21:00)
[2017-06-20 04:34] VITALS: BP 123/65
[2017-06-20 07:36] LABS: BASOPHILS % (AUTO) 0.4 % (0.0-2.0); EOSINOPHILS % (AUTO) 0.8 % (0.0-3.0); HEMATOCRIT 36.3 % (42.0-52.0); HEMOGLOBIN 12.1 G/DL (14.2-18.0); LYMPHOCYTES % (AUTO) 26.4 % (20.0-45.0); MEAN CORPUSCULAR VOLUME 91 FL (80-99); MONOCYTES % (AUTO) 8.2 % (1.0-10.0); NEUTROPHILS % (AUTO) 64.2 % (45.0-75.0); PLATELET COUNT 234 K/UL (150-450); RED BLOOD COUNT 3.99 M/UL (4.70-6.10); RED CELL DISTRIBUTION WIDTH 12.5 % (11.6-14.8); WHITE BLOOD COUNT 5.9 K/UL (4.8-10.8)
[2017-06-20 08:00] VITALS: BP 127/72
--- NOTE | 2017-06-20 08:24 | History & Physical ---
History and Physical History & Physicial 31-year-old male reports presents with hematemesis. The patient reports having multiple episodes of bright red blood vomitus. He states that he had previous history of a recent EGD and was diagnosed with esophageal varices. Patient had reportedly vomited several times. He denies any bloody stool. He reports taking oral anticoagulation for atrial fibrillation. Patient had a negative CTA approximately one month ago. Coded Allergies: AVOCADO (Verified Allergy, Unknown, 04/28/17) BANANA (Verified Allergy, Unknown, 04/28/17) KETOROLAC (Verified Allergy, Unknown, 04/28/17) Kiwi (Verified Allergy, Unknown, 04/28/17) LATEX, NATURAL RUBBER (Verified Allergy, Unknown, 04/28/17) MORPHINE (Verified Allergy, Unknown, 04/28/17) ONION (Verified Allergy, Unknown, 04/28/17) PROMETHAZINE (Verified Allergy, Unknown, 04/28/17) PROPOFOL (Verified Allergy, Unknown, 04/28/17) Uncoded Allergies: IODINATED CONTRAST (Allergy, Unknown, 04/28/17) Past Medical/surgical History: atrial fib, SVT, 2012-infarct, pulmonary hypertension, esophageal varices, biotronik pacemaker, Marfan, TIA, hypertension Reviewed of systems: as per HPI Physical exam WDWN NAD clear breath sounds bilaterally without rhonchi or wheeze [id number] without MRG NABS nontender no HSM no CCE nonfocal marfan's appearing Labs Test 06/19/17 11:47 06/19/17 11:51 06/19/17 12:45 06/20/17 04:50 White Blood Count 5.6 K/UL (4.8-10.8) 5.9 K/UL (4.8-10.8) Red Blood Count 4.56 M/UL (4.70-6.10) 3.99 M/UL (4.70-6.10) Hemoglobin 13.8 G/DL (14.2-18.0) 12.1 G/DL (14.2-18.0) Hematocrit 42.6 % (42.0-52.0) 36.3 % (42.0-52.0) Mean Corpuscular Volume 93 FL (80-99) 91 FL (80-99) Mean Corpuscular Hemoglobin 30.2 PG (27.0-31.0) 30.4 PG (27.0-31.0) Mean Corpuscular Hemoglobin Concent 32.4 G/DL (32.0-36.0) 33.4 G/DL (32.0-36.0) Red Cell Distribution Width 13.0 % (11.6-14.8) 12.5 % (11.6-14.8) Platelet Count 236 K/UL (150-450) 234 K/UL (150-450) Mean Platelet Volume 5.6 FL (6.5-10.1) 5.5 FL (6.5-10.1) Neutrophils (%) (Auto) 64.9 % (45.0-75.0) 64.2 % (45.0-75.0) Lymphocytes (%) (Auto) 25.1 % (20.0-45.0) 26.4 % (20.0-45.0) Monocytes (%) (Auto) 8.8 % (1.0-10.0) 8.2 % (1.0-10.0) Eosinophils (%) (Auto) 0.7 % (0.0-3.0) 0.8 % (0.0-3.0) Basophils (%) (Auto) 0.6 % (0.0-2.0) 0.4 % (0.0-2.0) Sodium Level 141 MMOL/L (136-145) Potassium Level 3.9 MMOL/L (3.5-5.1) Chloride Level 105 MMOL/L (98-107) Carbon Dioxide Level 26 MMOL/L (21-32) Anion Gap 10 mmol/L (5-15) Blood Urea Nitrogen 9 mg/dL (7-18) Creatinine 0.6 MG/DL (0.55-1.30) Estimat Glomerular Filtration Rate > 60 mL/min (>60) Glucose Level 89 MG/DL (74-106) Calcium Level 8.4 MG/DL (8.5-10.1) Total Bilirubin 0.5 MG/DL (0.2-1.0) Aspartate Amino Transf (AST/SGOT) 20 U/L (15-37) Alanine Aminotransferase (ALT/SGPT) 26 U/L (12-78) Alkaline Phosphatase 66 U/L (46-116) Troponin I 0.000 ng/mL (0.000-0.056) Total Protein 7.1 G/DL (6.4-8.2) Albumin 4.0 G/DL (3.4-5.0) Globulin 3.1 g/dL Albumin/Globulin Ratio 1.3 (1.0-2.7) Lipase 90 U/L (73-393) Digoxin Level < 0.2 NG/ML (0.5-2.0) Urine Color Yellow Urine Appearance Clear Urine pH 6.5 (4.5-8.0) Urine Specific [place] 1.015 (1.005-1.035) Urine Protein 1+ (NEGATIVE) Urine Glucose (UA) Negative (NEGATIVE) Urine Ketones Negative (NEGATIVE) Urine Occult Blood 3+ (NEGATIVE) Urine Nitrite Negative (NEGATIVE) Urine Bilirubin Negative (NEGATIVE) Urine Urobilinogen 1 MG/DL (0.0-1.0) Urine Leukocyte Esterase 1+ (NEGATIVE) Urine RBC 10-15 /HPF (0 - 0) Urine WBC 2-4 /HPF (0 - 0) Urine Squamous Epithelial Cells Occasional /LPF Urine Bacteria Few /HPF (NONE) Urine Mucus Moderate /LPF (NONE/OCC) Urine Opiates Screen Negative (NEGATIVE) Urine Barbiturates Screen Negative (NEGATIVE) Phencyclidine (PCP) Screen Negative (NEGATIVE) Urine Amphetamines Screen Negative (NEGATIVE) Urine Benzodiazepines Screen Negative (NEGATIVE) Urine Cocaine Screen Negative (NEGATIVE) Urine Marijuana (THC) Screen Negative (NEGATIVE) Prothrombin Time 11.0 SEC (9.30-11.50) Prothromb Time International Ratio 1.1 (0.9-1.1) Activated Partial Thromboplast Time 28 SEC (23-33) IMPRESSION possible GIB ho Esophageal varices Marfan's Atrial fibrillation Pacemaker PLAN GI evaluation HH stable anticoags held need to get clearance to resume dc pending GI clearance impression, plan, and exam edited and reviewed in detail care discussed with EUGENE DUFFY Jun 20, 2017 08:24
[2017-06-20] MEDS: Sotalol 80mg tab ORAL SCH ×2 (08:57→21:03)
[2017-06-20] MEDS: Carvedilol 6.25mg Tab ORAL SCH ×2 (08:58→21:04)
[2017-06-20] MEDS: Imdur 30mg tab ORAL SCH (08:58)
[2017-06-20] MEDS: Sertraline 50mg tab ORAL SCH (08:58)
[2017-06-20] MEDS: Digoxin 0.125mg tab ORAL SCH (08:59)
[2017-06-20] MEDS: Sucralfate 1gm tab ORAL SCH ×4 (10:00→21:03)
[2017-06-20] MEDS ORDERED: traMADol 50mg tab ORAL PRN (11:30)
[2017-06-20 12:00] VITALS: BP 112/62
[2017-06-20 16:00] VITALS: BP 118/72
[2017-06-20 20:00] VITALS: BP 122/66
[2017-06-21] VITALS (7 sets, daily range): BP systolic 112–125; BP diastolic 61–77
--- NOTE | 2017-06-21 04:30 | Consultation ---
DATE OF CONSULTATION: 06/20/2017 GASTROENTEROLOGY CONSULTATION CONSULTING PHYSICIAN: Sandra Patton M.D. CHIEF COMPLAINT: I was asked to see this patient by Dr. Aleksandr Suárez, for evaluation of gastrointestinal bleeding. HISTORY OF PRESENT ILLNESS: The patient is a 31-year-old man with multiple medical problems who comes in with a day of abdominal pain and vomiting of some scant amount of blood. The patient stated that he has had previous episodes of hematemesis and he has undergone three endoscopies, one was about a year ago, one was about six months ago, and the last one was about two weeks ago. All of these have shown arteriovenous malformations for which he has undergone endoscopic treatment, the last about two weeks ago. The patient has been placed on twice daily proton pump inhibitor as well as four times daily Carafate for treatment. He is also on aspirin and Eliquis because of his hypercoagulable state. PAST MEDICAL HISTORY: 1. History of Marfan syndrome plus cardiac arrest. 2. History of stroke and transient ischemic attack. 3. Atrial fibrillation. 4. Hypertension. FAMILY HISTORY: Positive for diabetes, Marfan syndrome, stroke, myocardial infarction, gastric cancer, and aneurysms. SOCIAL HISTORY: The patient is single. He has no children. He does not smoke or drink alcohol. MEDICATIONS: Include aspirin and Eliquis and number of other medications for other disorders as listed in the medical records. REVIEW OF SYSTEMS: Otherwise negative. PHYSICAL EXAMINATION: GENERAL: Well-developed, well-nourished man, seen in his room. HEENT: Normocephalic and atraumatic. Sclerae anicteric. Oropharynx clear. NECK: Supple. CHEST: Clear to auscultation. CARDIOVASCULAR: Revealed regular rate. ABDOMEN: Soft with some mild right upper quadrant tenderness to palpation without guarding or rebound. EXTREMITIES: Revealed no edema. LABORATORY DATA: Noted. ASSESSMENT: This patient presents with nausea, vomiting, and hematemesis of recent duration, hematemesis small volume and only one day duration. He has not dropped his hematocrit significantly. An endoscopy can be done to evaluate his prior endoscopic treatment effects and perhaps to treat any new or untreated arteriovenous malformations. For that, his aspirin and Eliquis should be held for 48 hours. In the meantime, I will hold off his iron, since his MCV is normal and iron may itself cause nausea and vomiting. I will increase Carafate his outpatient dose as well as his proton pump inhibitor. An abdominal ultrasound to be done to evaluate his right upper quadrant abdominal tenderness. RECOMMENDATIONS: Per above discussion and per orders written in the chart. Thank you for asking me to participate in care of this patient. Sandra Patton M.D. DR: LIZZY JOB#: [id number] CC: RICCO
[2017-06-21 07:32] LABS: BASOPHILS % (AUTO) 0.6 % (0.0-2.0); EOSINOPHILS % (AUTO) 1.9 % (0.0-3.0); HEMATOCRIT 38.9 % (42.0-52.0); HEMOGLOBIN 12.9 G/DL (14.2-18.0); LYMPHOCYTES % (AUTO) 35.6 % (20.0-45.0); MEAN CORPUSCULAR VOLUME 91 FL (80-99); MONOCYTES % (AUTO) 9.2 % (1.0-10.0); NEUTROPHILS % (AUTO) 52.7 % (45.0-75.0); PLATELET COUNT 215 K/UL (150-450); RED BLOOD COUNT 4.26 M/UL (4.70-6.10); RED CELL DISTRIBUTION WIDTH 12.8 % (11.6-14.8); WHITE BLOOD COUNT 4.9 K/UL (4.8-10.8)
[2017-06-21] MEDS: Sertraline 50mg tab ORAL SCH (08:26)
[2017-06-21] MEDS: Carvedilol 6.25mg Tab ORAL SCH ×2 (08:26→20:52)
[2017-06-21] MEDS: Digoxin 0.125mg tab ORAL SCH (08:26)
[2017-06-21] MEDS: Sucralfate 1gm tab ORAL SCH ×4 (08:27→20:52)
[2017-06-21] MEDS: Sotalol 80mg tab ORAL SCH ×2 (08:27→20:52)
[2017-06-21] MEDS: Imdur 30mg tab ORAL SCH (08:27)
--- NOTE | 2017-06-21 08:33 | General Progress Note ---
Assessment/Plan Assessment/Plan IMPRESSION possible GIB ho Esophageal varices Marfan's Atrial fibrillation Pacemaker PLAN GI evaluation noted HH stable anticoags on hold need to get clearance to resume dc pending EGD impression, plan, and exam edited and reviewed in detail care discussed with RN Subjective Allergies: Coded Allergies: AVOCADO (Verified Allergy, Unknown, 04/28/17) BANANA (Verified Allergy, Unknown, 04/28/17) KETOROLAC (Verified Allergy, Unknown, 04/28/17) Kiwi (Verified Allergy, Unknown, 04/28/17) LATEX, NATURAL RUBBER (Verified Allergy, Unknown, 04/28/17) MORPHINE (Verified Allergy, Unknown, 04/28/17) ONION (Verified Allergy, Unknown, 04/28/17) PROMETHAZINE (Verified Allergy, Unknown, 04/28/17) PROPOFOL (Verified Allergy, Unknown, 04/28/17) Uncoded Allergies: IODINATED CONTRAST (Allergy, Unknown, 04/28/17) Subjective no acute changes off anticoags Objective Last 24 Hour Vital Signs Date Time Temp Pulse Resp B/P (MAP) Pulse Ox O2 Delivery O2 Flow Rate FiO2 06/21/17 08:27 72 125/71 06/21/17 08:27 125/71 06/21/17 08:26 72 06/21/17 08:26 72 125/71 06/21/17 08:00 97.7 72 20 125/71 98 Room Air 06/21/17 04:00 97.5 74 18 113/69 97 Room Air 06/21/17 04:00 75 06/21/17 00:00 61 06/21/17 00:00 97.9 64 18 112/70 98 Room Air 06/20/17 21:04 75 122/66 06/20/17 21:03 75 122/66 06/20/17 20:00 96.4 75 18 122/66 99 Room Air 06/20/17 20:00 63 06/20/17 16:00 98.1 68 19 118/72 98 Room Air 06/20/17 16:00 68 06/20/17 12:00 98.2 77 20 112/62 98 06/20/17 12:00 70 06/20/17 10:40 70 06/20/17 08:59 82 06/20/17 08:58 123/65 06/20/17 08:58 82 123/65 06/20/17 08:57 82 123/65 Intake and Output 06/20/17 06/21/17 19:00 07:00 Intake Total 360 ml Output Total 400 ml Balance 360 ml -400 ml Intake Oral 360 ml Output Urine Total 400 ml # Bowel Movements 1 Laboratory Tests 06/21/17 06:10: White Blood Count 4.9, Red Blood Count 4.26L, Hemoglobin 12.9L, Hematocrit 38.9L , Mean Corpuscular Volume 91, Mean Corpuscular Hemoglobin 30.3, Mean Corpuscular Hemoglobin Concent 33.2, Red Cell Distribution Width 12.8, Platelet Count 215, Mean Platelet Volume 5.5L, Neutrophils (%) (Auto) 52.7, Lymphocytes ( %) (Auto) 35.6, Monocytes (%) (Auto) 9.2, Eosinophils (%) (Auto) 1.9, Basophils (%) (Auto) 0.6 Height (Feet): 6 Height (Inches): 3.00 Weight (Pounds): 220 Objective WDWN NAD clear breath sounds bilaterally without rhonchi or wheeze [id number] without MRG NABS nontender no HSM no CCE nonfocal EUGENE ALCAZAR Jun 21, 2017 08:33
--- NOTE | 2017-06-21 09:44 | Diagnostic Imaging Report ---
Indication: Abdominal pain, right upper quadrant pain Technique: Rae-scale and duplex images of the upper abdomen were obtained Comparison: none Findings: Gallbladder is unremarkable, without stones, wall thickening, nor pericholecystic fluid. Common bile duct measures to mm in diameter. No intrahepatic biliary ductal dilatation. Liver demonstrates normal echogenicity, no focal abnormality. Portal vein and hepatic veins are patent. Pancreas is obscured by bowel gas. Spleen is unremarkable. Left kidney measures 11.4 cm in length. Right kidney measures 12.8 cm length. Both kidneys demonstrate normal echogenicity. There is no hydronephrosis. No focal abnormality . Non-aneurysmal abdominal aorta . Impression: Negative Note inability to visualize the pancreas
--- NOTE | 2017-06-21 17:09 | General Progress Note ---
Assessment/Plan Assessment/Plan Assessment 1. History of Marfan syndrome plus cardiac arrest. 2. History of stroke and transient ischemic attack. 3. Atrial fibrillation. 4. Hypertension. 5. ? recurrent UGIB Recommendations - off anticoagulation - EGD in am - follow labs Subjective Allergies: Coded Allergies: AVOCADO (Verified Allergy, Unknown, 04/28/17) BANANA (Verified Allergy, Unknown, 04/28/17) KETOROLAC (Verified Allergy, Unknown, 04/28/17) Kiwi (Verified Allergy, Unknown, 04/28/17) LATEX, NATURAL RUBBER (Verified Allergy, Unknown, 04/28/17) MORPHINE (Verified Allergy, Unknown, 04/28/17) ONION (Verified Allergy, Unknown, 04/28/17) PROMETHAZINE (Verified Allergy, Unknown, 04/28/17) PROPOFOL (Verified Allergy, Unknown, 04/28/17) Uncoded Allergies: IODINATED CONTRAST (Allergy, Unknown, 04/28/17) Subjective Feels OK no further N/V Objective Last 24 Hour Vital Signs Date Time Temp Pulse Resp B/P (MAP) Pulse Ox O2 Delivery O2 Flow Rate FiO2 06/21/17 12:00 97.9 67 20 112/65 99 Room Air 06/21/17 12:00 69 06/21/17 08:27 72 125/71 06/21/17 08:27 125/71 06/21/17 08:26 72 06/21/17 08:26 72 125/71 06/21/17 08:00 75 06/21/17 08:00 97.7 72 20 125/71 98 Room Air 06/21/17 04:00 97.5 74 18 113/69 97 Room Air 06/21/17 04:00 75 06/21/17 00:00 61 06/21/17 00:00 97.9 64 18 112/70 98 Room Air 06/20/17 21:04 75 122/66 06/20/17 21:03 75 122/66 06/20/17 20:00 96.4 75 18 122/66 99 Room Air 06/20/17 20:00 63 Intake and Output 06/20/17 06/21/17 19:00 07:00 Intake Total 360 ml Output Total 400 ml Balance 360 ml -400 ml Intake Oral 360 ml Output Urine Total 400 ml # Bowel Movements 1 Laboratory Tests 06/21/17 06:10: White Blood Count 4.9, Red Blood Count 4.26L, Hemoglobin 12.9L, Hematocrit 38.9L , Mean Corpuscular Volume 91, Mean Corpuscular Hemoglobin 30.3, Mean Corpuscular Hemoglobin Concent 33.2, Red Cell Distribution Width 12.8, Platelet Count 215, Mean Platelet Volume 5.5L, Neutrophils (%) (Auto) 52.7, Lymphocytes ( %) (Auto) 35.6, Monocytes (%) (Auto) 9.2, Eosinophils (%) (Auto) 1.9, Basophils (%) (Auto) 0.6 Height (Feet): 6 Height (Inches): 3.00 Weight (Pounds): 220 Objective WDWN NCAT supple CTA RRR abd soft NT ND no edema non focal DILSHAD CLARK Jun 21, 2017 17:09
[2017-06-22] VITALS (10 sets, daily range): BP systolic 100–122; BP diastolic 42–76
[2017-06-22] MEDS ORDERED: DiphenhydrAMINE 50mg/ml Inj ONE (07:00)
[2017-06-22] MEDS ORDERED: Etomidate 40mg/20ml Inj IV ONE (07:00)
[2017-06-22] MEDS ORDERED: Lidocaine 1% MPF 10mg/ml 5ml ONE (07:00)
--- NOTE | 2017-06-22 07:02 | Anethesia Preoperative Eval ---
Anesthesia Pre-op PMH/ROS General Date of Evaluation: Jun 22, 2017 Anesthesiologist: Dell ASA Score: ASA 4 Mallampati Score Class I : Soft palate, uvula, fauces, pillars visible Class II: Soft palate, uvula, fauces visible Class III: Soft palate, base of uvula visible Class IV: Only hard plate visible Mallampati Classification: Class III Surgeon: Pooja Diagnosis: GI bleed Surgical Procedure: EGD Anesthesia History: none Family History: no anesthesia problems Allergies: Coded Allergies: AVOCADO (Verified Allergy, Unknown, 04/28/17) BANANA (Verified Allergy, Unknown, 04/28/17) KETOROLAC (Verified Allergy, Unknown, 04/28/17) Kiwi (Verified Allergy, Unknown, 04/28/17) LATEX, NATURAL RUBBER (Verified Allergy, Unknown, 04/28/17) MORPHINE (Verified Allergy, Unknown, 04/28/17) ONION (Verified Allergy, Unknown, 04/28/17) PROMETHAZINE (Verified Allergy, Unknown, 04/28/17) PROPOFOL (Verified Allergy, Unknown, 04/28/17) Uncoded Allergies: IODINATED CONTRAST (Allergy, Unknown, 04/28/17) Medications: see eMAR Past Medical History Cardiovascular: Reports: HTN, HI, valve dz, arrhythmia - afib, s/p AICD placement, other - CHD, Denies: CAD Pulmonary: Denies: asthma, COPD, DAVID, other Gastrointestinal/Genitourinary: Reports: other - GI bleed, Denies: GERD, CRI, ESRD Neurologic/Psychiatric: Reports: CVA, TIA, Denies: dementia, depression/anxiety, other Endocrine: Denies: DM, hypothyroidism, steroids, other HEENT: Denies: cataract (L), cataract (R), glaucoma, [place] (L), [place] (R), other Hematology/Immune: Reports: anemia - acute on chronic, Denies: DVT, bleeding disorder, other Musculoskeletal/Integumentary: Reports: other - marfans syndrome, Denies: OA, RA, DJD, DDD, edema Other: obesity PSxH Narrative: EGD, pacemaker, portacath Anesthesia Pre-op Phys. Exam Physician Exam Last Vital Signs Date Time Temp Pulse Resp B/P (MAP) Pulse Ox O2 Delivery O2 Flow Rate FiO2 06/22/17 04:00 87 06/22/17 03:39 97.3 20 110/64 97 Room Air Constitutional: NAD Cardiovascular: RRR Respiratory: CTA Airway Exam Mallampati Score: Class III MO: full ROM: full Teeth: intact Anesthesia Pre-op A/P Labs see chart Studies Pre-op Studies: EKG - paced Risk Assessment & Plan Assessment: ASA JAGDEEP Plan: GA Status Change Before Surgery: No Pre-Antibiotics Drug: N/A JADE BRITO M.D. Jun 22, 2017 07:02
--- NOTE | 2017-06-22 07:15 | Pre-Procedure Note/Attestation ---
Pre-Procedure Note/Attestation Complete Prior to Procedure Planned Procedure: not applicable Procedure Narrative: EGD Indications for Procedure Pre-Operative Diagnosis: UIB Attestation I attest that I discussed the nature of the procedure; its benefits; risks and complications; and alternatives (and the risks and benefits of such alternatives ), prior to the procedure, with the patient (or the patient's legal commissary representative). I attest that, if there was a reasonable possibility of needing a blood transfusion, the patient (or the patient's legal commissary representative) was given the [facility] standardized written summary, pursuant to the Nir [place]ack[place] Blood Safety Act ([place] Health and Safety Code # 1645, as amended). I attest that I re-evaluated the patient just prior to the surgery and that there has been no change in the patient's H&P, except as documented below: DILSHAD CLARK Jun 22, 2017 07:15
[2017-06-22] MEDS ORDERED: LR 1000ml 1,000 ML IVLG SCH (07:42)
--- NOTE | 2017-06-22 07:44 | Immediate Post-Op Evaluation ---
Immediate Post-Op Evalulation Immediate Post-Op Evalulation Procedure: EGD Date of Evaluation: Jun 22, 2017 Time of Evaluation: 07:56 IV Fluids: 200 Blood Products: 0 Estimated Blood Loss: 0 Urinary Output: 0 Blood Pressure Systolic: 139 Blood Pressure Diastolic: 82 Pulse Rate: 83 Respiratory Rate: 16 O2 Sat by Pulse Oximetry: 100 Temperature (Fahrenheit): 97.7 Pain Score (1-10): 0 Nausea: No Vomiting: No Complications 0 Patient Status: awake, reacts, patent, none Hydration Status: adequate Drug: N/A JADE BRITO M.D. Jun 22, 2017 07:44
--- NOTE | 2017-06-22 07:44 | General Progress Note ---
Assessment/Plan Assessment/Plan Assessment 1. History of Marfan syndrome plus cardiac arrest. 2. History of stroke and transient ischemic attack. 3. Atrial fibrillation. 4. Hypertension. 5. ? recurrent UGIB Recommendations - off anticoagulation - EGD today - follow labs Endoscopic Findings - Minimal gastritis - no bleeding, ulcer or AVM - Restart anticoagulation (Eliquis 5 BID) - d/c planning Subjective Allergies: Coded Allergies: AVOCADO (Verified Allergy, Unknown, 04/28/17) BANANA (Verified Allergy, Unknown, 04/28/17) KETOROLAC (Verified Allergy, Unknown, 04/28/17) Kiwi (Verified Allergy, Unknown, 04/28/17) LATEX, NATURAL RUBBER (Verified Allergy, Unknown, 04/28/17) MORPHINE (Verified Allergy, Unknown, 04/28/17) ONION (Verified Allergy, Unknown, 04/28/17) PROMETHAZINE (Verified Allergy, Unknown, 04/28/17) PROPOFOL (Verified Allergy, Unknown, 04/28/17) Uncoded Allergies: IODINATED CONTRAST (Allergy, Unknown, 04/28/17) Subjective Feels OK no further N/V no melena NPO for EGD Objective Last 24 Hour Vital Signs Date Time Temp Pulse Resp B/P (MAP) Pulse Ox O2 Delivery O2 Flow Rate FiO2 06/22/17 04:00 87 06/22/17 03:39 97.3 80 20 110/64 97 Room Air 06/22/17 00:00 88 06/21/17 23:22 97.9 80 20 115/61 97 Room Air 06/21/17 20:52 71 120/67 06/21/17 20:52 71 120/67 06/21/17 20:00 68 06/21/17 19:25 98.2 71 20 120/67 98 Room Air 06/21/17 16:00 67 06/21/17 16:00 97.3 67 20 124/77 99 Room Air 06/21/17 12:00 97.9 67 20 112/65 99 Room Air 06/21/17 12:00 69 06/21/17 08:27 72 125/71 06/21/17 08:27 125/71 06/21/17 08:26 72 06/21/17 08:26 72 125/71 06/21/17 08:00 75 1/1/18 08:00 97.7 72 20 125/71 98 Room Air Intake and Output 06/21/17 06/22/17 19:00 07:00 Intake Total 1510 ml Output Total 500 ml 3 ml Balance 1010 ml -3 ml Intake Oral 1510 ml Output Urine Total 500 ml 3 ml # Bowel Movements 1 1 Height (Feet): 6 Height (Inches): 6.00 Weight (Pounds): 220 Objective WDWN NCAT supple CTA RRR abd soft NT ND no edema non focal DILSHAD CLARK Jun 22, 2017 07:44
[2017-06-22] MEDS ORDERED: DiphenhydrAMINE 50mg/ml Inj IVP PRN (07:45)
--- NOTE | 2017-06-22 07:45 | Endoscopy Procedure Note ---
Endoscopy Procedure Note Indication for Procedure: possible UGIB Procedures Performed: EGD Operative Findings/Diagnosis: minimal linear gastritis Specimen: none Pt Tolerated Procedure Well: Yes Estimated Blood Loss: none Anesthesiologist: see report Anesthesia: MAC Medication Given: see anesthesia record Implant(s) used?: No 50 yrs or older w/o bx or poly: Not Applicable 10yrs. F/U not recommended: Not Applicable If not recommended, why?: DILSHAD CLARK Jun 22, 2017 07:45
--- NOTE | 2017-06-22 07:45 | 48 Hour Post Anesthesia Eval ---
Post Anesthesia Evaluation Procedure: EGD Date of Evaluation: Jun 22, 2017 Airway: patent Nausea: No Vomiting: No Pain Intensity: 0 Hydration Status: adequate Cardiopulmonary Status: at baseline Mental Status/LOC: patient returned to baseline Post-Anesthesia Complications: 0 Follow-up care needed: N/A - further care as per primary team JADE BRITO M.D. Jun 22, 2017 07:45
--- NOTE | 2017-06-22 07:46 | Brief Operative Note ---
Immediate Post Operative Note Operative Note Chief Complaint: possible UGIB Pre-op Diagnosis: UIB Procedure: EGD Post-op Diagnosis: minimal linear gastritis Surgeon: tremaine Anesthesiologist: see report Anesthesia: MAC, moderate sedation Specimen: none Complications: none Condition: stable Fluids: recorded Estimated Blood Loss: none Drains: none Implant(s) used?: No DILSHAD CLARK Jun 22, 2017 07:46
--- NOTE | 2017-06-22 08:45 | General Progress Note ---
Assessment/Plan Assessment/Plan IMPRESSION possible GIB ho Esophageal varices Marfan's Atrial fibrillation Pacemaker PLAN GI evaluation noted negative EGD HH stable anticoags ok to resume per GI need to get clearance to resume dc home and follow up with PMD; patient aware impression, plan, and exam edited and reviewed in detail care discussed with RN Subjective Allergies: Coded Allergies: AVOCADO (Verified Allergy, Unknown, 04/28/17) BANANA (Verified Allergy, Unknown, 04/28/17) KETOROLAC (Verified Allergy, Unknown, 04/28/17) Kiwi (Verified Allergy, Unknown, 04/28/17) LATEX, NATURAL RUBBER (Verified Allergy, Unknown, 04/28/17) MORPHINE (Verified Allergy, Unknown, 04/28/17) ONION (Verified Allergy, Unknown, 04/28/17) PROMETHAZINE (Verified Allergy, Unknown, 04/28/17) PROPOFOL (Verified Allergy, Unknown, 04/28/17) Uncoded Allergies: IODINATED CONTRAST (Allergy, Unknown, 04/28/17) Subjective no acute changes off anticoags cleared by GI Objective Last 24 Hour Vital Signs Date Time Temp Pulse Resp B/P (MAP) Pulse Ox O2 Delivery O2 Flow Rate FiO2 06/22/17 08:10 97.7 69 20 119/52 100 Room Air 06/22/17 08:05 67 20 115/64 100 Nasal Cannula 2.0 06/22/17 08:00 67 20 117/52 100 Nasal Cannula 2.0 06/22/17 07:57 83 16 100 06/22/17 07:56 69 20 120/52 100 Nasal Cannula 2.0 06/22/17 07:51 97.7 70 20 122/42 100 Nasal Cannula 2.0 06/22/17 04:00 87 06/22/17 03:39 97.3 80 20 110/64 97 Room Air 06/22/17 00:00 88 06/21/17 23:22 97.9 80 20 115/61 97 Room Air 06/21/17 20:52 71 120/67 06/21/17 20:52 71 120/67 06/21/17 20:00 68 06/21/17 19:25 98.2 71 20 120/67 98 Room Air 06/21/17 16:00 67 06/21/17 16:00 97.3 67 20 124/77 99 Room Air 06/21/17 12:00 97.9 67 20 112/65 99 Room Air 06/21/17 12:00 69 Intake and Output 06/21/17 06/22/17 19:00 07:00 Intake Total 1510 ml Output Total 500 ml 3 ml Balance 1010 ml -3 ml Intake Oral 1510 ml Output Urine Total 500 ml 3 ml # Bowel Movements 1 1 Height (Feet): 6 Height (Inches): 6.00 Weight (Pounds): 220 Objective WDWN NAD clear breath sounds bilaterally without rhonchi or wheeze [id number] without MRG NABS nontender no HSM no CCE nonfocal EUGENE ALCAZAR Jun 22, 2017 08:45
[2017-06-22] MEDS: Eliquis 2.5mg tablet ORAL SCH ×2 (09:00→17:20)
[2017-06-22] MEDS: Sotalol 80mg tab ORAL SCH ×2 (09:17→21:32)
[2017-06-22] MEDS: Imdur 30mg tab ORAL SCH (09:18)
[2017-06-22] MEDS: Sertraline 50mg tab ORAL SCH (09:19)
[2017-06-22] MEDS: Sucralfate 1gm tab ORAL SCH ×4 (09:19→21:32)
[2017-06-22] MEDS: Carvedilol 6.25mg Tab ORAL SCH ×2 (09:19→21:32)
[2017-06-22] MEDS: Digoxin 0.125mg tab ORAL SCH (09:19)
[2017-06-22 11:14] LABS: ANION GAP 8 mmol/L (5-15); BLOOD UREA NITROGEN 6 mg/dL (7-18); CALCIUM 8.3 MG/DL (8.5-10.1); CARBON DIOXIDE 26 MMOL/L (21-32); CHLORIDE 104 MMOL/L (98-107); CREATININE 0.7 MG/DL (0.55-1.30); POTASSIUM 4.4 MMOL/L (3.5-5.1); SODIUM 138 MMOL/L (136-145)
--- NOTE | 2017-06-23 19:29 | Cardiology Report ---
APPROVED REPORT EKG Measurement Heart [id number] [id number] Atrial paced rhythm Electronic pacemaker T wave abnormality, consider inferior ischemia Abnormal ECG
--- NOTE | 2017-06-25 18:30 | Procedure Note ---
DATE OF PROCEDURE: 06/22/2017 GASTROENTEROLOGY PROCEDURE REPORT PROCEDURE: Upper gastrointestinal endoscopy. SURGEON: Sandra Patton M.D. ANESTHESIA: Please see the separate anesthesiologist notes for details. PRE-ENDOSCOPIC DIAGNOSIS: Possible upper gastrointestinal bleeding. POST-ENDOSCOPIC DIAGNOSIS: Essentially normal upper endoscopy. DESCRIPTION OF PROCEDURE: The procedure, its risks, indications, alternatives, and possible complications were explained, and an informed consent was obtained. The patient was sedated in the left lateral decubitus position and a diagnostic upper endoscope was introduced into oropharynx and advanced to the duodenum. The endoscope was then gradually withdrawn and the mucosa was examined carefully. Examination of the upper gastrointestinal mucosa reveals a very minimal degree of gastritis in the gastric midbody. The procedure was otherwise unremarkable and essentially normal. The endoscope was removed and the patient was sent to recovery in good condition. COMPLICATIONS: None. RECOMMENDATIONS: 1. Resume oral diet. 2. Discharge planning. 3. Resume anticoagulation. Sandra Patton M.D. DR: LIZZY JOB#: [id number] CC:
--- NOTE | 2017-07-16 22:00 | Discharge Summary 2 SIG ---
DATE OF ADMISSION: 06/19/2017 DATE OF DISCHARGE: 06/22/2017 [employer] NETWORK INSTALLER: Sandra Patton M.D. BRIEF HOSPITAL COURSE: The patient is a 31-year-old male, who presented to ED due to multiple episodes of bright red blood vomitus. He had a previous history of recent esophagogastroduodenoscopy and was diagnosed with esophageal varices. He reportedly vomited several times, although denied any bloody stools. He has history of atrial fibrillation and has been on Eliquis. He has a Biotronik pacemaker implantation, history of Marfan syndrome, TIA, and hypertension. On evaluation at ED, he was given intravenous Pepcid. Hemoglobin level was 13.8. He reportedly had a normal CTA on previous visit. He was admitted for GI evaluation. He was seen by Dr. Patton. The patient had undergone three endoscopies. First was a year ago, second was six months ago, and the latest one was two weeks prior to admission. All of these have shown arteriovenous malformations for which he has undergone endoscopic treatment. He was placed on proton pump inhibitors b.i.d. as well as Carafate 4 times daily. The patient has been on aspirin and Eliquis. Anticoagulants had to be stopped prior to endoscopic procedures. MCV was normal. Iron was placed on hold as iron itself can cause nausea and vomiting. Abdominal ultrasound was done to assess complaints of right upper quadrant pain. Study was unremarkable on 06/22/2017. The patient underwent esophagogastroduodenoscopy. Findings showed a very minimal degree of gastritis in the gastric midbody. He was then resumed on oral diet and was resumed on anticoagulation. Hemoglobin and hematocrit have been stable. The patient was discharged home to follow up with PMD. FINAL DIAGNOSES: 1. Possible gastrointestinal bleed with history of esophageal varices. 2. Status post esophagogastroduodenoscopy by Dr. Patton on 06/22/2017. 3. Marfan syndrome. 4. Atrial fibrillation, on anticoagulation. 5. Pacemaker. DISPOSITION: The patient was discharged home. DISCHARGE MEDICATIONS: Refer to medication list. DISCHARGE INSTRUCTIONS: Follow up with PMD in a week. Aleksandr Suárez M.D. I have been assigned to dictate discharge summary on this account and I was not involved in the patient's management. Libby Tristan N.P. DR: BOYD JOB#: [id number] CC:
== END 2017-06-22 22:00 | disposition home or self-care (01) ==
LOC: EMR 11:51 → 2E 12:18 → UNDOADMIN 12:18 → 2E 12:18 → EDBEDREQ 15:40 → 2E 17:34
DX: K92.0 Hematemesis (principal); Q87.40 Marfan syndrome, unspecified; I48.91 Unspecified atrial fibrillation; I10 Essential (primary) hypertension; E66.9 Obesity, unspecified; K29.70 Gastritis, unspecified, without bleeding; Z68.25 Body mass index [BMI] 25.0-25.9, adult; Z95.0 Presence of cardiac pacemaker; Z95.810 Presence of automatic (implantable) cardiac defibrillator; Z86.73 Personal history of transient ischemic attack (TIA), and cerebral infarction without residual deficits; Z79.01 Long term (current) use of anticoagulants; Z79.82 Long term (current) use of aspirin; Z83.3 Family history of diabetes mellitus; Z82.3 Family history of stroke; Z82.49 Family history of ischemic heart disease and other diseases of the circulatory system; Z80.0 Family history of malignant neoplasm of digestive organs; Z91.041 Radiographic dye allergy status; Z91.040 Latex allergy status; Z91.018 Allergy to other foods; Z88.6 Allergy status to analgesic agent
CPT/HCPCS: 36415; 43235; 76700; 80048; 80053; 80162; 80307; 81003; 83690; 84484; 85025; 85610; 85730; 86850; 86900; 86901; 93005; 99285; J1200; J1630; J2250; J2405; S0028; Z7512; 94003; 94150; J8499